=== PATIENT | female | born 1935 | race Caucasian/White ===

== ENCOUNTER 2016-09-21 19:49 | Inpatient (IN) | payer MEDICARE ==
[~2016-09-21] VITALS: Ht 149.9 cm; Wt 79.3 kg
[2016-09-21] MEDS ORDERED: PARO10TA89 PO (20:01)
[2016-09-21] MEDS ORDERED: ADV500 IH (20:01)
[2016-09-21] MEDS ORDERED: TORS20 PO (20:01)
[2016-09-21] MEDS ORDERED: METO-323 PO (20:01)
[2016-09-21] MEDS ORDERED: IPRATROPIUM BROMIDE 0.5 MG/2.5 ML NEB SOLUTION NEB ONE (20:30)
[2016-09-21] MEDS ORDERED: ALBUTEROL SULFATE 5 MG/ML 20 ML NEB SOLN [BULK] NEB ONE (20:30)
[2016-09-21] MEDS ORDERED: DEXAMETHASONE SOD PHOS 4 MG/ML 5 ML VIAL IVP ONE (20:30)
[2016-09-21 20:52] LABS: BASOPHILS % (AUTO) 0.4 % (0.0-2.0); EOSINOPHILS % (AUTO) 0.9 % (1.0-6.0); HEMATOCRIT 39.5 % (36-46); LYMPHOCYTES # (AUTO) 2.9 K/uL (1.0-4.8); LYMPHOCYTES % (AUTO) 27.5 % (22.0-44.0); MEAN CORPUSCULAR HEMOGLOBIN 31.7 pg (26.0-34.0); MEAN CORPUSCULAR VOLUME 96 fL (80-100); MONOCYTES # (AUTO) 1.3 K/uL (0.1-1.0); NEUTROPHILS # (AUTO) 6.3 K/uL (1.8-7.7); NEUTROPHILS % (AUTO) 59.2 % (40.0-70.0); PLATELET COUNT (AUTO) 331 K/uL (150-450); RED BLOOD CELL COUNT(AUTO) 4.12 MIL/uL (4.00-5.20); RED CELL DISTRIBUTION WIDTH 13.8 % (11.5-14.5); WHITE BLOOD COUNT (AUTO) 10.6 K/uL (4.5-11.0)
[2016-09-21] MEDS ORDERED: 0.9% SODIUM CHLORIDE 5 ML NEB SOLUTION NEB ONE (20:53)
[2016-09-21 21:00] LABS: ANION GAP 6 mmol/L (8-16); CALCIUM, TOTAL 8.8 mg/dL (8.8-10.5); CARBON DIOXIDE 34 mmol/L (22-29); CHLORIDE 97 mmol/L (98-107); CREATININE 0.83 mg/dL (0.60-1.30); GLOMERULAR FILTR. RATE CALC > 60 mL/min (>60); POTASSIUM 3.3 mmol/L (3.5-5.1); SODIUM SERUM 137 mmol/L (136-145); UREA NITROGEN, BLOOD 14 mg/dL (7-18)
[2016-09-21 21:05] LABS: ALANINE AMINOTRANSFERASE 21 U/L (12-78); ALBUMIN 3.1 g/dL (3.4-5.0); ASPARTATE AMINOTRANSFERASE 11 U/L (15-37); BILIRUBIN,TOTAL 0.3 mg/dL (0.1-1.0); TOTAL PROTEIN, SERUM 6.8 g/dL (6.4-8.2)
[2016-09-21 21:23] LABS: B-TYPE NATRIURETIC PEPTIDE 128 pg/mL (0-100)
[2016-09-21] MEDS ORDERED: AZITHROMYCIN 500 MG/NS 250 ML IV ONE (22:00)
[2016-09-21] MEDS ORDERED: CefTRIAXone 1 GM/DEXTROSE 50 ML IV ONE (22:00)
[2016-09-21] MEDS ORDERED: POTASSIUM CHLORIDE 20 MEQ ER TABLET PO PRN (22:15)
[2016-09-21] MEDS ORDERED: MAGNESIUM HYDROXIDE SUSPENSION 30 ML UDCUP PO PRN (22:15)
[2016-09-21] MEDS ORDERED: POTASSIUM CHL 10 MEQ/WATER 50 ML IV PRN (22:15)
[2016-09-21 22:49] LABS: INFLUENZA TYPE B NEGATIVE FOR TYPE B (NEGATIVE)
[2016-09-21 23:15] VITALS: BP 160/76
[2016-09-22] MEDS: HEPARIN SODIUM,PORCINE 5,000 UNITS/ML VIAL SQ SCH ×3 (00:33→17:05)
[2016-09-22] MEDS: MethylPREDNISolone SOD SUCC 125 MG/2 ML VIAL IVP SCH ×5 (00:33→17:18)
[2016-09-22] MEDS ORDERED: 0.9% SODIUM CHLORIDE 5 ML NEB SOLUTION NEB ONE (02:12)
[2016-09-22] MEDS: ALBUTEROL SULFATE 2.5 MG/0.5 ML NEB SOLUTION NEB PRN ×4 (02:16→19:17)
[2016-09-22] MEDS: IPRATROPIUM BROMIDE 0.5 MG/2.5 ML NEB SOLUTION NEB PRN ×4 (02:16→19:17)
[2016-09-22 04:51] VITALS: BP 133/63
[2016-09-22 07:44] VITALS: BP 142/60
[2016-09-22] MEDS: DOCUSATE SODIUM 100 MG CAPSULE PO SCH ×2 (09:25→20:07)
[2016-09-22] MEDS: ASPIRIN 81 MG CHEWABLE TABLET PO SCH (09:25)
[2016-09-22] MEDS: PANTOPRAZOLE SODIUM 40 MG DR TABLET PO SCH (09:25)
[2016-09-22 11:06] VITALS: BP 163/74
[2016-09-22] MEDS ORDERED: SODIUM CHLORIDE 0.9% 100 ML ONE (12:18)
[2016-09-22] MEDS ORDERED: METF500T4 PO (14:45)
[2016-09-22] MEDS ORDERED: NIFE60TA71 PO (14:45)
[2016-09-22] MEDS ORDERED: CLOP75 PO (14:45)
[2016-09-22] MEDS ORDERED: NAPR220T57 PO (14:45)
[2016-09-22] MEDS ORDERED: HYDR25 PO (14:45)
[2016-09-22] MEDS ORDERED: NYST1POW16 TP (14:45)
[2016-09-22] MEDS ORDERED: ATOR40TA28 PO (14:45)
[2016-09-22] MEDS ORDERED: NITR.4 SL (14:45)
[2016-09-22] MEDS ORDERED: TIOT185 IH (14:45)
[2016-09-22] MEDS ORDERED: KDUR10 PO (14:45)
[2016-09-22] MEDS ORDERED: FOLI1 PO (14:45)
[2016-09-22] MEDS ORDERED: METO100XL PO (14:45)
[2016-09-22] MEDS ORDERED: ASPI-1093 PO (14:45)
[2016-09-22] MEDS ORDERED: ISOS60TA4 PO (14:45)
[2016-09-22] MEDS ORDERED: TELM40 PO (14:45)
[2016-09-22] MEDS ORDERED: ALBU8.5H IH (14:45)
[2016-09-22] MEDS ORDERED: RANI150T7 PO (14:45)
[2016-09-22] MEDS ORDERED: AUD NEB ×2 (14:45)
[2016-09-22] MEDS ORDERED: MONT10TA21 PO (14:45)
[2016-09-22] MEDS ORDERED: FURO40 PO (14:45)
[2016-09-22] MEDS ORDERED: LORA0.5T83 PO (14:46)
[2016-09-22 15:51] VITALS: BP 151/92
[2016-09-22] MEDS ORDERED: ASPIRIN 81 MG EC TABLET PO PRN (16:45)
[2016-09-22] MEDS ORDERED: NITROGLYCERIN 0.4 MG SUBLINGUAL TABLET #25 SL PRN (16:45)
[2016-09-22] MEDS: FUROSEMIDE 40 MG TABLET PO SCH (17:05)
[2016-09-22] MEDS: CLOPIDOGREL BISULFATE 75 MG TABLET PO SCH (17:05)
[2016-09-22] MEDS: FOLIC ACID 1 MG TABLET PO SCH (17:05)
[2016-09-22] MEDS ORDERED: DEXTROSE 50%-WATER 25 GM/50 ML SYRINGE IVP PRN (18:15)
[2016-09-22] MEDS: TIOTROPIUM BROMIDE 18 MCG/INH HANDIHALER [5] IH SCH (18:21)
[2016-09-22] MEDS: FLUTICASONE/VILANTEROL 200-25 MCG/INH INHALER [14] IH SCH (18:21)
[2016-09-22] MEDS: TELMISARTAN 40 MG TABLET PO SCH (18:21)
[2016-09-22] MEDS: MetFORMIN HCL 500 MG TABLET PO SCH (18:22)
[2016-09-22] MEDS: LORazepam 2 MG/ML VIAL IVP PRN (18:23)
[2016-09-22] MEDS: INSULIN ASPART 100 UNITS/ML SQ PRN ×2 (18:37→20:50)
[2016-09-22 19:46] VITALS: BP 153/84
[2016-09-22] MEDS: ISOSORBIDE MONONITRATE 60 MG ER TABLET PO SCH (20:07)
[2016-09-22] MEDS: OxyCODONE HCL/ACETAMINOPHEN 5-325 MG TABLET PO PRN (20:07)
[2016-09-22] MEDS: OXYGEN THERAPY IH SCH (20:07)
[2016-09-22] MEDS: METOPROLOL SUCCINATE 100 MG ER TABLET PO SCH (20:08)
[2016-09-22] MEDS: CefTRIAXone 1 GM/DEXTROSE 50 ML IV SCH (20:08)
[2016-09-22] MEDS: NIFEdipine 60 MG ER TABLET PO SCH (20:08)
[2016-09-22] MEDS: ATORVASTATIN CALCIUM 40 MG TABLET PO SCH (20:08)
[2016-09-22] MEDS: HydrALAZINE HCL 25 MG TABLET PO SCH (20:08)
[2016-09-22] MEDS: MONTELUKAST SODIUM 10 MG TABLET PO SCH (20:11)
[2016-09-23 00:04] VITALS: BP 127/60
[2016-09-23] MEDS: OxyCODONE HCL/ACETAMINOPHEN 5-325 MG TABLET PO PRN (00:06)
[2016-09-23] MEDS: MethylPREDNISolone SOD SUCC 125 MG/2 ML VIAL IVP SCH ×5 (00:06→23:31)
[2016-09-23] MEDS: HEPARIN SODIUM,PORCINE 5,000 UNITS/ML VIAL SQ SCH ×4 (00:06→23:29)
[2016-09-23] MEDS: AZITHROMYCIN 500 MG/NS 250 ML IV SCH (00:07)
[2016-09-23] MEDS: LORazepam 2 MG/ML VIAL IVP PRN (02:34)
[2016-09-23 04:54] VITALS: BP 109/52
[2016-09-23] MEDS: INSULIN ASPART 100 UNITS/ML SQ PRN ×4 (06:15→21:12)
[2016-09-23 06:57] LABS: GLUCOSE,POINT OF CARE 268 MG/DL (70-110)
[2016-09-23 06:57] LABS: GLUCOSE COMMENT 1 Doctor Notified; GLUCOSE,POINT OF CARE 402 MG/DL (70-110)
[2016-09-23 07:10] VITALS: BP 126/59
[2016-09-23] MEDS: MetFORMIN HCL 500 MG TABLET PO SCH ×2 (08:14→18:13)
[2016-09-23] MEDS: FUROSEMIDE 40 MG TABLET PO SCH (08:14)
[2016-09-23] MEDS: FOLIC ACID 1 MG TABLET PO SCH (08:14)
[2016-09-23] MEDS: HydrALAZINE HCL 25 MG TABLET PO SCH ×4 (08:14→21:00)
[2016-09-23] MEDS: CLOPIDOGREL BISULFATE 75 MG TABLET PO SCH (08:14)
[2016-09-23] MEDS: PANTOPRAZOLE SODIUM 40 MG DR TABLET PO SCH (08:14)
[2016-09-23] MEDS: NIFEdipine 60 MG ER TABLET PO SCH ×2 (08:14→21:00)
[2016-09-23] MEDS: TELMISARTAN 40 MG TABLET PO SCH (08:14)
[2016-09-23] MEDS: POTASSIUM CHLORIDE 10 MEQ ER TABLET PO SCH (08:14)
[2016-09-23] MEDS: ASPIRIN 81 MG CHEWABLE TABLET PO SCH (08:15)
[2016-09-23] MEDS: DOCUSATE SODIUM 100 MG CAPSULE PO SCH ×2 (08:15→21:03)
[2016-09-23] MEDS: FLUTICASONE/VILANTEROL 200-25 MCG/INH INHALER [14] IH SCH (08:16)
[2016-09-23] MEDS: TIOTROPIUM BROMIDE 18 MCG/INH HANDIHALER [5] IH SCH (08:16)
[2016-09-23] MEDS: IPRATROPIUM BROMIDE 0.5 MG/2.5 ML NEB SOLUTION NEB PRN ×3 (08:17→15:53)
[2016-09-23] MEDS: ALBUTEROL SULFATE 2.5 MG/0.5 ML NEB SOLUTION NEB PRN ×3 (08:17→15:53)
[2016-09-23] MEDS: OXYGEN THERAPY IH SCH ×2 (09:21→21:00)
[2016-09-23 11:08] VITALS: BP 113/58
[2016-09-23] MEDS: ISOSORBIDE MONONITRATE 60 MG ER TABLET PO SCH ×2 (12:27→21:02)
[2016-09-23 15:00] VITALS: BP 118/48
[2016-09-23 16:02] LABS: ABG A-A DIFF O2 95.4 mmHg (10-20.0); ABG HCO3 29.9 mmol/L (22.0-26.0); ABG OXYHEMOGLOBIN 94.7 % (94.0-100.0); ABG PCO2 49 mmHg (35-45); ABG PH 7.427 (7.35-7.450)
[2016-09-23 16:03] LABS: ALLEN TEST, BLOOD GAS Positive
[2016-09-23 17:36] LABS: GLUCOSE COMMENT 1 Received Meds; GLUCOSE,POINT OF CARE 229 MG/DL (70-110)
[2016-09-23 19:23] VITALS: BP 106/52
[2016-09-23] MEDS: ATORVASTATIN CALCIUM 40 MG TABLET PO SCH (21:01)
[2016-09-23] MEDS: METOPROLOL SUCCINATE 100 MG ER TABLET PO SCH (21:01)
[2016-09-23] MEDS: MONTELUKAST SODIUM 10 MG TABLET PO SCH (21:01)
[2016-09-23] MEDS: ACETAMINOPHEN 325 MG TABLET PO PRN (21:14)
[2016-09-23] MEDS: CefTRIAXone 1 GM/DEXTROSE 50 ML IV SCH (23:29)
[2016-09-24] VITALS (8 sets, daily range): BP systolic 108–132; BP diastolic 50–70
[2016-09-24] MEDS: AZITHROMYCIN 500 MG/NS 250 ML IV SCH ×2 (00:23→23:15)
[2016-09-24] MEDS: ACETAMINOPHEN 325 MG TABLET PO PRN (02:57)
[2016-09-24] MEDS: MethylPREDNISolone SOD SUCC 125 MG/2 ML VIAL IVP SCH (05:21)
[2016-09-24] MEDS: INSULIN ASPART 100 UNITS/ML SQ PRN ×4 (05:23→20:10)
[2016-09-24 07:57] LABS: BASOPHILS # (AUTO) 0.01 K/uL (0.00-0.20); EOSINOPHILS % (AUTO) 0 % (1.0-6.0); HEMATOCRIT 32.6 % (36-46); HEMOGLOBIN 10.9 g/dL (12.0-16.0); LYMPHOCYTES # (AUTO) 0.7 K/uL (1.0-4.8); LYMPHOCYTES % (AUTO) 3.2 % (22.0-44.0); MEAN CORPUSCULAR HEMOGLOBIN 31.9 pg (26.0-34.0); MEAN CORPUSCULAR HGB CONC 33.4 G/dL (31.0-37.0); MEAN CORPUSCULAR VOLUME 95 fL (80-100); MONOCYTES # (AUTO) 0.4 K/uL (0.1-1.0); MONOCYTES % (AUTO) 2.1 % (2.0-9.0); NEUTROPHILS # (AUTO) 19.7 K/uL (1.8-7.7); PLATELET COUNT (AUTO) 312 K/uL (150-450); RED BLOOD CELL COUNT(AUTO) 3.42 MIL/uL (4.00-5.20); RED CELL DISTRIBUTION WIDTH 14.1 % (11.5-14.5); WHITE BLOOD COUNT (AUTO) 20.8 K/uL (4.5-11.0)
[2016-09-24 08:04] LABS: NEUTROPHILS % (AUTO) 94.7 % (40.0-70.0)
[2016-09-24] MEDS: TIOTROPIUM BROMIDE 18 MCG/INH HANDIHALER [5] IH SCH (08:14)
[2016-09-24] MEDS: FLUTICASONE/VILANTEROL 200-25 MCG/INH INHALER [14] IH SCH (08:14)
[2016-09-24] MEDS: MetFORMIN HCL 500 MG TABLET PO SCH ×2 (08:15→17:55)
[2016-09-24] MEDS: PANTOPRAZOLE SODIUM 40 MG DR TABLET PO SCH (08:15)
[2016-09-24] MEDS: FUROSEMIDE 40 MG TABLET PO SCH (08:15)
[2016-09-24] MEDS: POTASSIUM CHLORIDE 10 MEQ ER TABLET PO SCH (08:15)
[2016-09-24] MEDS: DOCUSATE SODIUM 100 MG CAPSULE PO SCH ×2 (08:15→20:11)
[2016-09-24] MEDS: CLOPIDOGREL BISULFATE 75 MG TABLET PO SCH (08:15)
[2016-09-24] MEDS: FOLIC ACID 1 MG TABLET PO SCH (08:15)
[2016-09-24] MEDS: ASPIRIN 81 MG CHEWABLE TABLET PO SCH (08:15)
[2016-09-24] MEDS: HEPARIN SODIUM,PORCINE 5,000 UNITS/ML VIAL SQ SCH ×3 (08:19→23:11)
[2016-09-24 08:20] LABS: ANION GAP 2 mmol/L (8-16); CALCIUM, TOTAL 9.2 mg/dL (8.8-10.5); CARBON DIOXIDE 37 mmol/L (22-29); CHLORIDE 98 mmol/L (98-107); CREATININE 0.93 mg/dL (0.60-1.30); GLOMERULAR FILTR. RATE CALC 58 mL/min (>60); POTASSIUM 4.8 mmol/L (3.5-5.1); SODIUM SERUM 137 mmol/L (136-145); UREA NITROGEN, BLOOD 32 mg/dL (7-18)
[2016-09-24] MEDS: OXYGEN THERAPY IH SCH ×2 (08:20→20:11)
[2016-09-24 09:18] LABS: PROCALCITONIN (PCT) < 0.05 ng/mL (<0.50)
[2016-09-24] MEDS: MethylPREDNISolone SOD SUCC 40 MG/ML VIAL IVP SCH ×3 (11:15→23:11)
[2016-09-24] MEDS: ISOSORBIDE MONONITRATE 60 MG ER TABLET PO SCH ×2 (11:39→20:11)
[2016-09-24] MEDS: HydrALAZINE HCL 25 MG TABLET PO SCH ×4 (11:40→20:11)
[2016-09-24] MEDS: NIFEdipine 60 MG ER TABLET PO SCH ×2 (11:42→20:11)
[2016-09-24] MEDS: TELMISARTAN 40 MG TABLET PO SCH (13:17)
[2016-09-24] MEDS: IPRATROPIUM BROMIDE 0.5 MG/2.5 ML NEB SOLUTION NEB PRN ×2 (13:39→23:25)
[2016-09-24] MEDS: ALBUTEROL SULFATE 2.5 MG/0.5 ML NEB SOLUTION NEB PRN ×2 (13:39→23:25)
[2016-09-24 20:06] LABS: GLUCOSE COMMENT 1 Received Meds; GLUCOSE,POINT OF CARE 263 MG/DL (70-110)
[2016-09-24 20:06] LABS: GLUCOSE COMMENT 1 Received Meds; GLUCOSE,POINT OF CARE 370 MG/DL (70-110)
[2016-09-24 20:06] LABS: GLUCOSE,POINT OF CARE 232 MG/DL (70-110)
[2016-09-24 20:07] LABS: GLUCOSE,POINT OF CARE 249 MG/DL (70-110)
[2016-09-24 20:07] LABS: GLUCOSE,POINT OF CARE 184 MG/DL (70-110)
[2016-09-24 20:07] LABS: GLUCOSE COMMENT 1 Received Meds; GLUCOSE,POINT OF CARE 286 MG/DL (70-110)
[2016-09-24 20:07] LABS: GLUCOSE,POINT OF CARE 254 MG/DL (70-110)
[2016-09-24] MEDS: ATORVASTATIN CALCIUM 40 MG TABLET PO SCH (20:11)
[2016-09-24] MEDS: MONTELUKAST SODIUM 10 MG TABLET PO SCH (20:11)
[2016-09-24] MEDS: METOPROLOL SUCCINATE 100 MG ER TABLET PO SCH (20:11)
[2016-09-24] MEDS ORDERED: SODIUM CHLORIDE 0.9% 250 ML IV ONE (23:05)
[2016-09-24] MEDS: CefTRIAXone 1 GM/DEXTROSE 50 ML IV SCH (23:12)
[2016-09-25] MEDS: OxyCODONE HCL/ACETAMINOPHEN 5-325 MG TABLET PO PRN (01:47)
[2016-09-25] MEDS: ALBUTEROL SULFATE 2.5 MG/0.5 ML NEB SOLUTION NEB PRN ×2 (02:54→12:13)
[2016-09-25] MEDS: IPRATROPIUM BROMIDE 0.5 MG/2.5 ML NEB SOLUTION NEB PRN ×2 (02:54→12:14)
[2016-09-25 05:03] VITALS: BP 123/50
[2016-09-25] MEDS: MethylPREDNISolone SOD SUCC 40 MG/ML VIAL IVP SCH ×2 (06:31→10:56)
[2016-09-25] MEDS: INSULIN ASPART 100 UNITS/ML SQ PRN ×4 (06:43→20:33)
[2016-09-25 07:23] VITALS: BP 136/72
[2016-09-25] MEDS: ASPIRIN 81 MG CHEWABLE TABLET PO SCH (08:07)
[2016-09-25] MEDS: DOCUSATE SODIUM 100 MG CAPSULE PO SCH ×2 (08:07→20:25)
[2016-09-25] MEDS: PANTOPRAZOLE SODIUM 40 MG DR TABLET PO SCH (08:07)
[2016-09-25] MEDS: FOLIC ACID 1 MG TABLET PO SCH (08:07)
[2016-09-25] MEDS: HEPARIN SODIUM,PORCINE 5,000 UNITS/ML VIAL SQ SCH ×3 (08:07→23:53)
[2016-09-25] MEDS: MetFORMIN HCL 500 MG TABLET PO SCH ×2 (08:07→17:59)
[2016-09-25] MEDS: CLOPIDOGREL BISULFATE 75 MG TABLET PO SCH (08:08)
[2016-09-25] MEDS: HydrALAZINE HCL 25 MG TABLET PO SCH ×4 (08:09→20:25)
[2016-09-25] MEDS: NIFEdipine 60 MG ER TABLET PO SCH ×2 (08:09→20:25)
[2016-09-25] MEDS: FLUTICASONE/VILANTEROL 200-25 MCG/INH INHALER [14] IH SCH (08:11)
[2016-09-25] MEDS: OXYGEN THERAPY IH SCH ×2 (08:12→20:24)
[2016-09-25] MEDS: TIOTROPIUM BROMIDE 18 MCG/INH HANDIHALER [5] IH SCH (08:12)
[2016-09-25 08:20] VITALS: BP 132/60
[2016-09-25] MEDS: ISOSORBIDE MONONITRATE 60 MG ER TABLET PO SCH ×2 (09:21→20:25)
[2016-09-25] MEDS: FUROSEMIDE 40 MG TABLET PO SCH (09:21)
[2016-09-25] MEDS: POTASSIUM CHLORIDE 10 MEQ ER TABLET PO SCH (09:22)
[2016-09-25 11:44] VITALS: BP 135/56
[2016-09-25] MEDS: TELMISARTAN 40 MG TABLET PO SCH (11:50)
[2016-09-25 15:35] VITALS: BP 128/64
[2016-09-25] MEDS ORDERED: NYST60PO TP (16:29)
[2016-09-25] MEDS ORDERED: LORA1TAB3 PO (16:29)
[2016-09-25] MEDS: PredniSONE 20 MG TABLET PO SCH (17:59)
[2016-09-25 19:19] VITALS: BP 146/65
[2016-09-25 19:56] LABS: GLUCOSE COMMENT 1 Received Meds; GLUCOSE,POINT OF CARE 333 MG/DL (70-110)
[2016-09-25 19:56] LABS: GLUCOSE COMMENT 1 Received Meds; GLUCOSE,POINT OF CARE 317 MG/DL (70-110)
[2016-09-25 19:56] LABS: GLUCOSE COMMENT 1 Received Meds; GLUCOSE,POINT OF CARE 177 MG/DL (70-110)
[2016-09-25] MEDS: METOPROLOL SUCCINATE 100 MG ER TABLET PO SCH (20:25)
[2016-09-25] MEDS: MONTELUKAST SODIUM 10 MG TABLET PO SCH (20:25)
[2016-09-25] MEDS: ATORVASTATIN CALCIUM 40 MG TABLET PO SCH (20:25)
[2016-09-25] MEDS: CefTRIAXone 1 GM/DEXTROSE 50 ML IV SCH (23:53)
[2016-09-25] MEDS: AZITHROMYCIN 500 MG/NS 250 ML IV SCH (23:53)
[2016-09-26 00:18] VITALS: BP 148/79
[2016-09-26 04:35] VITALS: BP 123/70
[2016-09-26] MEDS: INSULIN ASPART 100 UNITS/ML SQ PRN ×4 (06:51→20:18)
[2016-09-26 07:05] LABS: GLUCOSE COMMENT 1 Received Meds; GLUCOSE,POINT OF CARE 266 MG/DL (70-110)
[2016-09-26 07:06] LABS: GLUCOSE,POINT OF CARE 189 MG/DL (70-110)
[2016-09-26 07:11] LABS: GLUCOSE,POINT OF CARE 254 MG/DL (70-110)
[2016-09-26 07:48] VITALS: BP 141/64
[2016-09-26] MEDS: FLUTICASONE/VILANTEROL 200-25 MCG/INH INHALER [14] IH SCH (08:35)
[2016-09-26] MEDS: TIOTROPIUM BROMIDE 18 MCG/INH HANDIHALER [5] IH SCH (08:35)
[2016-09-26] MEDS: PredniSONE 20 MG TABLET PO SCH (08:36)
[2016-09-26] MEDS: CLOPIDOGREL BISULFATE 75 MG TABLET PO SCH (08:36)
[2016-09-26] MEDS: FOLIC ACID 1 MG TABLET PO SCH (08:36)
[2016-09-26] MEDS: TELMISARTAN 40 MG TABLET PO SCH (08:36)
[2016-09-26] MEDS: NIFEdipine 60 MG ER TABLET PO SCH ×2 (08:36→20:13)
[2016-09-26] MEDS: ISOSORBIDE MONONITRATE 60 MG ER TABLET PO SCH ×2 (08:36→20:13)
[2016-09-26] MEDS: POTASSIUM CHLORIDE 10 MEQ ER TABLET PO SCH (08:36)
[2016-09-26] MEDS: FUROSEMIDE 40 MG TABLET PO SCH (08:37)
[2016-09-26] MEDS: ASPIRIN 81 MG CHEWABLE TABLET PO SCH (08:37)
[2016-09-26] MEDS: MetFORMIN HCL 500 MG TABLET PO SCH ×2 (08:37→18:22)
[2016-09-26] MEDS: DOCUSATE SODIUM 100 MG CAPSULE PO SCH ×2 (08:37→20:13)
[2016-09-26] MEDS: PANTOPRAZOLE SODIUM 40 MG DR TABLET PO SCH (08:37)
[2016-09-26] MEDS: HydrALAZINE HCL 25 MG TABLET PO SCH ×4 (08:37→20:13)
[2016-09-26] MEDS: OXYGEN THERAPY IH SCH ×2 (08:42→20:13)
[2016-09-26] MEDS: HEPARIN SODIUM,PORCINE 5,000 UNITS/ML VIAL SQ SCH ×3 (08:45→22:44)
[2016-09-26] MEDS ORDERED: LORazepam 0.5 MG TABLET PO PRN (09:00)
[2016-09-26 11:35] VITALS: BP 139/66
[2016-09-26] MEDS ORDERED: MethylPREDNISolone SOD SUCC 125 MG/2 ML VIAL IVP ONE (14:30)
[2016-09-26 15:14] VITALS: BP 130/66
[2016-09-26] MEDS ORDERED: PANT40TA25 PO (17:50)
[2016-09-26 19:31] VITALS: BP 149/74
[2016-09-26] MEDS: MONTELUKAST SODIUM 10 MG TABLET PO SCH (20:13)
[2016-09-26] MEDS: ATORVASTATIN CALCIUM 40 MG TABLET PO SCH (20:13)
[2016-09-26] MEDS: METOPROLOL SUCCINATE 100 MG ER TABLET PO SCH (20:13)
[2016-09-26] MEDS: CefTRIAXone 1 GM/DEXTROSE 50 ML IV SCH (22:41)
[2016-09-26] MEDS: AZITHROMYCIN 500 MG/NS 250 ML IV SCH (22:41)
[2016-09-27] VITALS: BP 118/89
[2016-09-27 00:47] LABS: GLUCOSE COMMENT 1 Received Meds; GLUCOSE,POINT OF CARE 332 MG/DL (70-110)
[2016-09-27 04:45] VITALS: BP 117/57
[2016-09-27] MEDS: INSULIN ASPART 100 UNITS/ML SQ PRN (06:43)
[2016-09-27 07:26] VITALS: BP 116/61
[2016-09-27] MEDS: HEPARIN SODIUM,PORCINE 5,000 UNITS/ML VIAL SQ SCH (08:24)
[2016-09-27] MEDS: ASPIRIN 81 MG CHEWABLE TABLET PO SCH (08:24)
[2016-09-27] MEDS: FLUTICASONE/VILANTEROL 200-25 MCG/INH INHALER [14] IH SCH (08:25)
[2016-09-27] MEDS: TIOTROPIUM BROMIDE 18 MCG/INH HANDIHALER [5] IH SCH (08:26)
[2016-09-27] MEDS: MetFORMIN HCL 500 MG TABLET PO SCH (08:28)
[2016-09-27] MEDS: HydrALAZINE HCL 25 MG TABLET PO SCH (08:28)
[2016-09-27] MEDS: PANTOPRAZOLE SODIUM 40 MG DR TABLET PO SCH (08:29)
[2016-09-27] MEDS: FUROSEMIDE 40 MG TABLET PO SCH (08:29)
[2016-09-27] MEDS: DOCUSATE SODIUM 100 MG CAPSULE PO SCH (08:29)
[2016-09-27] MEDS: ISOSORBIDE MONONITRATE 60 MG ER TABLET PO SCH (08:29)
[2016-09-27] MEDS: PredniSONE 20 MG TABLET PO SCH (08:29)
[2016-09-27] MEDS: CLOPIDOGREL BISULFATE 75 MG TABLET PO SCH (08:29)
[2016-09-27] MEDS: NIFEdipine 60 MG ER TABLET PO SCH (08:30)
[2016-09-27] MEDS: FOLIC ACID 1 MG TABLET PO SCH (08:30)
[2016-09-27] MEDS: POTASSIUM CHLORIDE 10 MEQ ER TABLET PO SCH (08:30)
[2016-09-27] MEDS: TELMISARTAN 40 MG TABLET PO SCH (08:31)
[2016-09-27] MEDS: OXYGEN THERAPY IH SCH (08:31)
[2016-09-27] MEDS ORDERED: PRED10 PO (10:19)
[2016-09-27 19:46] LABS: GLUCOSE COMMENT 1 Received Meds; GLUCOSE,POINT OF CARE 138 MG/DL (70-110)
[2016-10-08 12:27] LABS: GLUCOSE COMMENT 1 Received Meds; GLUCOSE,POINT OF CARE 259 MG/DL (70-110)
[2016-10-08 12:27] LABS: GLUCOSE COMMENT 1 Received Meds; GLUCOSE,POINT OF CARE 123 MG/DL (70-110)
== END 2016-09-27 11:25 | disposition home health service (06) | DRG 189 ==
LOC: EMS 19:51 → 5N 22:22
PROVIDERS: ADMIT Internal Medicine; ATTEND Internal Medicine
DX: J96.20 Acute and chronic respiratory failure, unspecified whether with hypoxia or hypercapnia (principal); J44.1 Chronic obstructive pulmonary disease with (acute) exacerbation; E44.0 Moderate protein-calorie malnutrition; E66.01 Morbid (severe) obesity due to excess calories; E87.6 Hypokalemia; I50.9 Heart failure, unspecified; R91.1 Solitary pulmonary nodule; I11.0 Hypertensive heart disease with heart failure; E11.9 Type 2 diabetes mellitus without complications; F41.9 Anxiety disorder, unspecified; I25.10 Atherosclerotic heart disease of native coronary artery without angina pectoris; Z68.35 Body mass index [BMI] 35.0-35.9, adult; Z79.899 Other long term (current) drug therapy; Z79.51 Long term (current) use of inhaled steroids
CPT/HCPCS: 71250; 82805; 82962; 84132; 84145; 87081; 87804; 93005; 94640; 94644; 96365; 96375; 99285; J0456; J0696; J1100; J1644; J2060; J2920; J2930; J7050

== ENCOUNTER 2016-12-06 09:16 | Emergency (ER) | payer MEDICARE ==
[~2016-12-06] VITALS: Ht 152.4 cm; Wt 59.1 kg
[~2016-12-06 09:16] MED LIST: ADV500 IH; ALBU8.5H IH; ASPI-1093 PO; ATOR40TA28 PO; AUD NEB; CLOP75 PO; FOLI1 PO; FURO40 PO; HYDR25 PO; ISOS60TA4 PO; KDUR10 PO; METF500T4 PO; METO100XL PO; MONT10TA21 PO; NAPR220T57 PO; NIFE60 PO; NITR.4 SL; PANT40TA25 PO; PRED10 PO; TELM40 PO; TIOT185 IH
[2016-12-06 10:49] LABS: BASOPHILS # (AUTO) 0.02 K/uL (0.00-0.20); BASOPHILS % (AUTO) 0.3 % (0.0-2.0); EOSINOPHILS # (AUTO) 0.06 K/uL (0.00-0.70); EOSINOPHILS % (AUTO) 0.66 % (1.0-6.0); HEMATOCRIT 36.5 % (36-46); HEMOGLOBIN 12.4 g/dL (12.0-16.0); LYMPHOCYTES # (AUTO) 1.6 K/uL (1.0-4.8); LYMPHOCYTES % (AUTO) 19.1 % (22.0-44.0); MEAN CORPUSCULAR HEMOGLOBIN 31.3 pg (26.0-34.0); MEAN CORPUSCULAR HGB CONC 33.8 G/dL (31.0-37.0); MEAN CORPUSCULAR VOLUME 93 fL (80-100); MONOCYTES # (AUTO) 0.5 K/uL (0.1-1.0); MONOCYTES % (AUTO) 5.5 % (2.0-9.0); NEUTROPHILS # (AUTO) 6.4 K/uL (1.8-7.7); NEUTROPHILS % (AUTO) 74.5 % (40.0-70.0); PLATELET COUNT (AUTO) 319 K/uL (150-450); RED BLOOD CELL COUNT(AUTO) 3.94 MIL/uL (4.00-5.20); RED CELL DISTRIBUTION WIDTH 13.3 % (11.5-14.5); WHITE BLOOD COUNT (AUTO) 8.6 K/uL (4.5-11.0)
[2016-12-06 10:57] LABS: ANION GAP 6 mmol/L (8-16); CARBON DIOXIDE 35 mmol/L (22-29); CHLORIDE 103 mmol/L (98-107); CREATININE 0.58 mg/dL (0.60-1.30); GLOMERULAR FILTR. RATE CALC > 60 mL/min (>60); POTASSIUM 3.4 mmol/L (3.5-5.1); SODIUM SERUM 144 mmol/L (136-145); UREA NITROGEN, BLOOD 13 mg/dL (7-18)
[2016-12-06 11:03] LABS: ALANINE AMINOTRANSFERASE 16 U/L (12-78); ALBUMIN 3.1 g/dL (3.4-5.0); ASPARTATE AMINOTRANSFERASE 16 U/L (15-37); BILIRUBIN,TOTAL 0.6 mg/dL (0.1-1.0); TOTAL PROTEIN, SERUM 6.9 g/dL (6.4-8.2)
[2016-12-06] MEDS ORDERED: CloNIDine HCL 0.2 MG TABLET PO ONE (11:15)
[2016-12-06 11:39] LABS: CREATINE KINASE, TOTAL 43 U/L (26-192)
[2016-12-06 12:05] LABS: APPEARANCE,URINE CLEAR (CLEAR); GLUCOSE, URINE (UA) NEGATIVE (NEGATIVE); KETONES,URINE TRACE mg/dL (NEGATIVE); LEUKOCYTE ESTERASE ,URINE TRACE (NEGATIVE); OCCULT BLOOD,URINE NEGATIVE (NEGATIVE); PH,URINE 6.5 (5.0-8.0); PROTEIN,URINE SEE CONFIRM (NEGATIVE)
[2016-12-06 12:07] LABS: ADD UA MICROSCOPIC YES; SULFOSALICYLIC ACID,URINE 1+ (Negative)
[2016-12-06 12:13] LABS: RBC,URINE None Seen /HPF (0-2)
[2016-12-06 12:14] LABS: SQUAMOUS EPITHELIAL CELL,UR Few /LPF (None Seen); WBC,URINE 0-2 /HPF (0-5)
[2016-12-06 13:06] VITALS: BP 123/88
== END 2016-12-06 13:41 | disposition home or self-care (01) ==
LOC: EMS 09:18
DX: I10 Essential (primary) hypertension (principal); I50.9 Heart failure, unspecified; E11.9 Type 2 diabetes mellitus without complications; Z79.82 Long term (current) use of aspirin
CPT/HCPCS: 70450; 93005; 99285

== ENCOUNTER 2018-01-25 21:00 | Inpatient (IN) | payer MEDICARE, OTHER ==
[~2018-01-25] VITALS: Ht 152.4 cm; Wt 71.0 kg
[~2018-01-25 21:00] MED LIST changes: -ALBU8.5H IH; +ALBU8.5H8 IH; -ASPI-1093 PO; +ASPI-1182 PO; -HYDR25 PO; +HYDR25TA84 PO; -METF500T4 PO; +METF500T6 PO; -NIFE60 PO; +NIFE60TA71 PO; -PRED10 PO
[2018-01-25] MEDS ORDERED: LORA0.5T2 PO (21:52)
[2018-01-25] MEDS ORDERED: HYDR-4069 PO (21:52)
[2018-01-25] MEDS ORDERED: LIDO1ADH5 TP (21:53)
[2018-01-25] MEDS ORDERED: CefTRIAXone SODIUM 1 GM in DEXTROSE 5%-WATER 10 ML IV ONE (22:15)
[2018-01-25] MEDS ORDERED: IPRATROPIUM BROMIDE 0.5 MG/2.5 ML NEB SOLUTION NEB ONE (22:15)
[2018-01-25] MEDS ORDERED: ALBUTEROL SULFATE 2.5 MG/0.5 ML NEB SOLUTION NEB ONE (22:15)
[2018-01-25] MEDS ORDERED: ACETAMINOPHEN 500 MG TABLET PO ONE (22:15)
[2018-01-25] MEDS ORDERED: MethylPREDNISolone SOD SUCC 125 MG/2 ML VIAL IVP ONE (22:15)
[2018-01-25 22:28] LABS: BASOPHILS % (AUTO) 0.4 % (0.0-2.0); EOSINOPHILS % (AUTO) 0.3 % (1.0-6.0); HEMATOCRIT 31.8 % (36-46); HEMOGLOBIN 10.9 g/dL (12.0-16.0); LYMPHOCYTES # (AUTO) 1.2 K/uL (1.0-4.8); LYMPHOCYTES % (AUTO) 11.5 % (22.0-44.0); MEAN CORPUSCULAR HEMOGLOBIN 33.4 pg (26.0-34.0); MEAN CORPUSCULAR HGB CONC 34.3 G/dL (31.0-37.0); MEAN CORPUSCULAR VOLUME 97 fL (80-100); MONOCYTES # (AUTO) 0.8 K/uL (0.1-1.0); MONOCYTES % (AUTO) 7.2 % (2.0-9.0); NEUTROPHILS # (AUTO) 8.6 K/uL (1.8-7.7); NEUTROPHILS % (AUTO) 80.6 % (40.0-70.0); PLATELET COUNT (AUTO) 307 K/uL (150-450); RED BLOOD CELL COUNT(AUTO) 3.26 MIL/uL (4.00-5.20); RED CELL DISTRIBUTION WIDTH 15.6 % (11.5-14.5)
[2018-01-25 22:46] LABS: CALCIUM, TOTAL 8.7 mg/dL (8.8-10.5); CREATININE 1.2 mg/dL (0.60-1.30); POTASSIUM 4.6 mmol/L (3.5-5.1)
[2018-01-25 22:52] LABS: ALBUMIN 3.1 g/dL (3.4-5.0); BILIRUBIN,TOTAL 0.6 mg/dL (0.1-1.0); TOTAL PROTEIN, SERUM 6.8 g/dL (6.4-8.2)
[2018-01-25 22:53] LABS: LACTIC ACID 1.9 mmol/L (0.4-2.0)
[2018-01-25] MEDS ORDERED: ASPIRIN 325 MG TABLET PO ONE (23:15)
[2018-01-25] MEDS: OXYGEN THERAPY IH SCH ×2 (23:37→23:58)
[2018-01-25] MEDS ORDERED: IPRATROPIUM BROMIDE 0.5 MG/2.5 ML NEB SOLUTION NEB PRN (23:45)
[2018-01-25] MEDS ORDERED: 0.9% SODIUM CHLORIDE 10 ML SYRINGE IVP PRN (23:45)
[2018-01-25] MEDS ORDERED: ONDANSETRON HCL 4 MG/2 ML VIAL IVP PRN (23:45)
[2018-01-25] MEDS ORDERED: ACETAMINOPHEN 325 MG TABLET PO PRN (23:45)
[2018-01-25] MEDS ORDERED: ALBUTEROL SULFATE 2.5 MG/0.5 ML NEB SOLUTION NEB PRN (23:45)
[2018-01-26] VITALS (7 sets, daily range): BP systolic 104–170; BP diastolic 58–109
[2018-01-26] MEDS: IPRATROPIUM BROMIDE 0.5 MG/2.5 ML NEB SOLUTION NEB SCH ×3 (01:59→11:34)
[2018-01-26] MEDS: ALBUTEROL SULFATE 2.5 MG/0.5 ML NEB SOLUTION NEB SCH ×3 (01:59→11:34)
[2018-01-26] MEDS: LORazepam 2 MG/ML VIAL IVP PRN (02:01)
[2018-01-26] MEDS: OXYGEN THERAPY IH SCH ×4 (06:25→19:28)
[2018-01-26] MEDS ORDERED: MAGNESIUM SULFATE 2 GM in DEXTROSE 5%-WATER 50 ML IV PRN (12:45)
[2018-01-26] MEDS ORDERED: DEXTROSE 50%-WATER 25 GM/50 ML SYRINGE IVP PRN (12:45)
[2018-01-26] MEDS ORDERED: NITROGLYCERIN 0.4 MG SUBLINGUAL TABLET #25 SL PRN (12:45)
[2018-01-26] MEDS ORDERED: TELMISARTAN 40 MG TABLET PO SCH (12:45)
[2018-01-26] MEDS ORDERED: MAGNESIUM SULFATE 4 GM/WATER 100 ML IV PRN (12:45)
[2018-01-26] MEDS ORDERED: MAGNESIUM OXIDE 400 MG TABLET PO PRN (12:45)
[2018-01-26] MEDS ORDERED: ISOSORBIDE MONONITRATE 30 MG ER TABLET PO SCH (12:45)
[2018-01-26] MEDS ORDERED: LEVALBUTEROL HCL 1.25 MG/0.5 ML NEB SOLUTION NEB PRN (12:45)
[2018-01-26] MEDS: NIFEdipine 60 MG ER TABLET PO SCH ×2 (12:45→20:45)
[2018-01-26] MEDS: ASPIRIN 81 MG EC TABLET PO SCH (12:58)
[2018-01-26] MEDS: FUROSEMIDE 40 MG TABLET PO SCH (12:59)
[2018-01-26] MEDS: FOLIC ACID 1 MG TABLET PO SCH (12:59)
[2018-01-26] MEDS: CLOPIDOGREL BISULFATE 75 MG TABLET PO SCH (12:59)
[2018-01-26] MEDS: HydrALAZINE HCL 25 MG TABLET PO SCH ×3 (13:00→20:45)
[2018-01-26] MEDS: ALPRAZolam 0.25 MG TABLET PO PRN (13:00)
[2018-01-26] MEDS: ACETAMINOPHEN 325 MG TABLET PO PRN (13:01)
[2018-01-26] MEDS ORDERED: 0.9% SODIUM CHLORIDE 5 ML NEB SOLUTION NEB ONE ×3 (15:06→23:11)
[2018-01-26] MEDS: LEVALBUTEROL HCL 1.25 MG/0.5 ML NEB SOLUTION NEB SCH ×3 (15:08→23:12)
[2018-01-26] MEDS: TIOTROPIUM BROMIDE 18 MCG/INH HANDIHALER [5] IH SCH (15:44)
[2018-01-26 16:52] LABS: ABG A-A DIFF O2 376.1 mmHg (10-20.0); ABG CARBOXYHEMOGLOBIN 1.2 % (0.0-1.5); ABG HCO3 29.2 mmol/L (22.0-26.0); ABG METHEMOGLOBIN 0.3 % (0.0-1.5); ABG OXYGEN CONTENT 12.8 mL/dL (15.0-23.0); ABG OXYGEN SATURATION 84.5 % (95.0-98.0); ABG OXYHEMOGLOBIN 83.2 % (94.0-100.0); ABG PCO2 65 mmHg (35-45); ABG PH 7.325 (7.35-7.450); ABG TOTAL HEMOGLOBIN 10.9 G/dL (12.0-18.0); PO2, ARTERIAL BG 53.3 mmHg (71.0-79.0); SITE, BLOOD GAS LFT RADIAL; SOURCE, BLOOD GAS ARTERIAL; TEMPERATURE, FAHRENHEIT, BG 98.6 FAHREN (96.0-98.6)
[2018-01-26 16:53] LABS: O2 DEVICE,BLOOD GAS HI FL CANNULA (ROOM AIR)
[2018-01-26] MEDS: MetFORMIN HCL 500 MG TABLET PO SCH (18:00)
[2018-01-26] MEDS: ATORVASTATIN CALCIUM 40 MG TABLET PO SCH (21:14)
[2018-01-26] MEDS: MONTELUKAST SODIUM 10 MG TABLET PO SCH (21:15)
[2018-01-27] VITALS: BP 99/56
[2018-01-27] MEDS ORDERED: 0.9% SODIUM CHLORIDE 5 ML NEB SOLUTION NEB ONE (03:08)
[2018-01-27] MEDS: LEVALBUTEROL HCL 1.25 MG/0.5 ML NEB SOLUTION NEB SCH ×2 (03:09→07:12)
[2018-01-27 03:10] LABS: GLUCOSE,POINT OF CARE 95 MG/DL (70-110)
[2018-01-27 04:00] VITALS: BP 127/66
[2018-01-27 05:02] LABS: BASOPHILS % (AUTO) 0.5 % (0.0-2.0); EOSINOPHILS % (AUTO) 0.7 % (1.0-6.0); HEMATOCRIT 29.4 % (36-46); HEMOGLOBIN 10.3 g/dL (12.0-16.0); LYMPHOCYTES # (AUTO) 1.3 K/uL (1.0-4.8); LYMPHOCYTES % (AUTO) 14.6 % (22.0-44.0); MEAN CORPUSCULAR VOLUME 97 fL (80-100); MONOCYTES # (AUTO) 0.9 K/uL (0.1-1.0); MONOCYTES % (AUTO) 10.8 % (2.0-9.0); NEUTROPHILS # (AUTO) 6.4 K/uL (1.8-7.7); NEUTROPHILS % (AUTO) 73.4 % (40.0-70.0); PLATELET COUNT (AUTO) 262 K/uL (150-450); RED BLOOD CELL COUNT(AUTO) 3.03 MIL/uL (4.00-5.20); RED CELL DISTRIBUTION WIDTH 15.2 % (11.5-14.5)
[2018-01-27 05:09] LABS: ANION GAP 2 mmol/L (8-16); CALCIUM, TOTAL 8.6 mg/dL (8.8-10.5); CARBON DIOXIDE 36 mmol/L (22-29); CHLORIDE 98 mmol/L (98-107); CREATININE 0.83 mg/dL (0.60-1.30); GLUCOSE,RANDOM 102 mg/dL (70-110); POTASSIUM 3.9 mmol/L (3.5-5.1); SODIUM SERUM 136 mmol/L (136-145); UREA NITROGEN, BLOOD 20 mg/dL (7-18)
[2018-01-27 05:10] LABS: GLOMERULAR FILTR. RATE CALC > 60 mL/min (>60)
[2018-01-27 05:30] LABS: GLUCOMETER DEV NAME(LOC) 5S 2Q; GLUCOSE,POINT OF CARE 135 MG/DL (70-110)
[2018-01-27 05:30] LABS: GLUCOMETER DEV NAME(LOC) 5S 1M; GLUCOSE,POINT OF CARE 195 MG/DL (70-110)
[2018-01-27 05:31] LABS: GLUCOMETER DEV NAME(LOC) 5S 2Q; GLUCOSE,POINT OF CARE 151 MG/DL (70-110)
[2018-01-27 08:00] VITALS: BP 145/67
[2018-01-27] MEDS: MetFORMIN HCL 500 MG TABLET PO SCH ×3 (08:00→17:40)
[2018-01-27 08:09] LABS: GLUCOSE,POINT OF CARE 100 MG/DL (70-110)
[2018-01-27] MEDS: ISOSORBIDE MONONITRATE 60 MG ER TABLET PO SCH ×2 (08:23→20:22)
[2018-01-27] MEDS: TIOTROPIUM BROMIDE 18 MCG/INH HANDIHALER [5] IH SCH (08:31)
[2018-01-27] MEDS: CLOPIDOGREL BISULFATE 75 MG TABLET PO SCH (08:32)
[2018-01-27] MEDS: FOLIC ACID 1 MG TABLET PO SCH (08:32)
[2018-01-27] MEDS: HydrALAZINE HCL 25 MG TABLET PO SCH ×4 (08:32→20:23)
[2018-01-27] MEDS: ASPIRIN 81 MG EC TABLET PO SCH (08:40)
[2018-01-27] MEDS: NIFEdipine 60 MG ER TABLET PO SCH ×2 (08:42→20:24)
[2018-01-27] MEDS: FUROSEMIDE 40 MG TABLET PO SCH (08:46)
[2018-01-27] MEDS ORDERED: TELMISARTAN 20 MG TABLET PO SCH (09:00)
[2018-01-27] MEDS: IPRATROPIUM BROMIDE 0.5 MG/2.5 ML NEB SOLUTION NEB SCH ×4 (10:51→22:57)
[2018-01-27 12:00] VITALS: BP 95/48
[2018-01-27] MEDS: DOXYCYCLINE HYCLATE 100 MG CAPSULE PO SCH ×2 (12:22→20:25)
[2018-01-27] MEDS: CefTRIAXone SODIUM 1 GM in DEXTROSE 5%-WATER 10 ML IV SCH (12:24)
[2018-01-27] MEDS: MethylPREDNISolone SOD SUCC 125 MG/2 ML VIAL IVP SCH ×2 (12:24→17:40)
[2018-01-27] MEDS: INSULIN LISPRO 100 UNITS/ML SQ PRN ×3 (12:27→20:21)
[2018-01-27] MEDS: ACETAMINOPHEN 325 MG TABLET PO PRN (14:14)
[2018-01-27] MEDS: ALBUTEROL SULFATE 2.5 MG/0.5 ML NEB SOLUTION NEB SCH ×4 (15:00→22:57)
[2018-01-27 15:38] LABS: GLUCOSE,POINT OF CARE 159 MG/DL (70-110)
[2018-01-27 16:00] VITALS: BP 125/58
[2018-01-27 20:00] VITALS: BP 120/62
[2018-01-27] MEDS: ATORVASTATIN CALCIUM 40 MG TABLET PO SCH (20:22)
[2018-01-27] MEDS: MONTELUKAST SODIUM 10 MG TABLET PO SCH (20:22)
[2018-01-27] MEDS: FUROSEMIDE 40 MG/4 ML VIAL IVP SCH (20:23)
[2018-01-27 22:48] LABS: GLUCOSE,POINT OF CARE 228 MG/DL (70-110)
[2018-01-28] VITALS: BP 154/98
[2018-01-28] MEDS: MethylPREDNISolone SOD SUCC 125 MG/2 ML VIAL IVP SCH ×4 (00:18→17:33)
[2018-01-28] MEDS: LORazepam 2 MG/ML VIAL IVP PRN ×2 (00:18→21:07)
[2018-01-28 03:18] LABS: GLUCOSE,POINT OF CARE 195 MG/DL (70-110)
[2018-01-28] MEDS: IPRATROPIUM BROMIDE 0.5 MG/2.5 ML NEB SOLUTION NEB SCH ×6 (03:30→22:50)
[2018-01-28] MEDS: ALBUTEROL SULFATE 2.5 MG/0.5 ML NEB SOLUTION NEB SCH ×6 (03:30→22:50)
[2018-01-28 04:00] VITALS: BP 104/59
[2018-01-28] MEDS: INSULIN LISPRO 100 UNITS/ML SQ PRN ×4 (05:57→23:35)
[2018-01-28 07:23] LABS: GLUCOSE,POINT OF CARE 197 MG/DL (70-110)
[2018-01-28 08:00] VITALS: BP 119/58
[2018-01-28] MEDS: CLOPIDOGREL BISULFATE 75 MG TABLET PO SCH (08:55)
[2018-01-28] MEDS: FUROSEMIDE 40 MG/4 ML VIAL IVP SCH ×2 (08:55→21:59)
[2018-01-28] MEDS: ASPIRIN 81 MG EC TABLET PO SCH (08:56)
[2018-01-28] MEDS: FOLIC ACID 1 MG TABLET PO SCH (08:56)
[2018-01-28] MEDS: HydrALAZINE HCL 25 MG TABLET PO SCH ×4 (08:56→21:59)
[2018-01-28] MEDS: ISOSORBIDE MONONITRATE 60 MG ER TABLET PO SCH ×2 (08:56→21:58)
[2018-01-28] MEDS: MetFORMIN HCL 500 MG TABLET PO SCH ×2 (08:56→17:33)
[2018-01-28] MEDS: DOXYCYCLINE HYCLATE 100 MG CAPSULE PO SCH ×2 (08:57→21:59)
[2018-01-28] MEDS: NIFEdipine 60 MG ER TABLET PO SCH ×2 (08:57→21:58)
[2018-01-28] MEDS: TELMISARTAN 40 MG TABLET PO SCH (08:58)
[2018-01-28 09:19] LABS: BASOPHILS % (AUTO) 0.4 % (0.0-2.0); EOSINOPHILS % (AUTO) 0 % (1.0-6.0); HEMATOCRIT 28.2 % (36-46); HEMOGLOBIN 9.8 g/dL (12.0-16.0); LYMPHOCYTES # (AUTO) 0.7 K/uL (1.0-4.8); LYMPHOCYTES % (AUTO) 5.9 % (22.0-44.0); MEAN CORPUSCULAR HEMOGLOBIN 33.3 pg (26.0-34.0); MEAN CORPUSCULAR HGB CONC 34.6 G/dL (31.0-37.0); MEAN CORPUSCULAR VOLUME 96 fL (80-100); MONOCYTES # (AUTO) 0.2 K/uL (0.1-1.0); NEUTROPHILS # (AUTO) 10.9 K/uL (1.8-7.7); PLATELET COUNT (AUTO) 285 K/uL (150-450); RED BLOOD CELL COUNT(AUTO) 2.93 MIL/uL (4.00-5.20); RED CELL DISTRIBUTION WIDTH 15.1 % (11.5-14.5)
[2018-01-28] MEDS: TIOTROPIUM BROMIDE 18 MCG/INH HANDIHALER [5] IH SCH (09:29)
[2018-01-28 09:31] LABS: NEUTROPHILS % (AUTO) 91.7 % (40.0-70.0)
[2018-01-28 09:34] LABS: ALBUMIN 2.8 g/dL (3.4-5.0); BILIRUBIN,TOTAL 0.5 mg/dL (0.1-1.0); CALCIUM, TOTAL 8.6 mg/dL (8.8-10.5); CREATININE 1.01 mg/dL (0.60-1.30); MAGNESIUM 1.4 mg/dL (1.80-2.40); POTASSIUM 4.2 mmol/L (3.5-5.1); TOTAL PROTEIN, SERUM 6.6 g/dL (6.4-8.2)
[2018-01-28] MEDS: ACETAMINOPHEN 325 MG TABLET PO PRN ×2 (10:25→14:29)
[2018-01-28] MEDS: CefTRIAXone SODIUM 1 GM in DEXTROSE 5%-WATER 10 ML IV SCH (10:27)
[2018-01-28] MEDS ORDERED: MAGNESIUM SULFATE 2 GM/WATER 50 ML IV PRN (10:45)
[2018-01-28 11:31] LABS: PROTHROMBIN TIME 10.7 SEC (9.4-11.6)
[2018-01-28 11:41] LABS: APPEARANCE,URINE CLOUDY (CLEAR); GLUCOSE, URINE (UA) NEGATIVE (NEGATIVE); KETONES,URINE TRACE mg/dL (NEGATIVE); LEUKOCYTE ESTERASE ,URINE SMALL (NEGATIVE); NITRATE,URINE NEGATIVE (NEGATIVE); OCCULT BLOOD,URINE LARGE (NEGATIVE); PROTEIN,URINE NEGATIVE (NEGATIVE); UROBILINOGEN,URINE 0.2 mg/dL (<=1.0)
[2018-01-28 12:00] VITALS: BP 110/52
[2018-01-28 12:22] LABS: BILIRUBIN,URINE PRELIM. POSITIVE (NEGATIVE)
[2018-01-28 12:50] LABS: RBC,URINE >100 /HPF (0-2)
[2018-01-28 12:52] LABS: BACTERIA,URINE Few /HPF (None Seen)
[2018-01-28 12:55] LABS: SQUAMOUS EPITHELIAL CELL,UR Rare /LPF (None Seen)
[2018-01-28] MEDS ORDERED: SODIUM CHLORIDE 0.9% 250 ML IV ONE (13:20)
[2018-01-28 16:00] VITALS: BP 119/51
[2018-01-28 17:11] LABS: SPECIMENTYPE,BODY FLUID THORACENTESIS
[2018-01-28 17:53] LABS: GLUCOSE,POINT OF CARE 230 MG/DL (70-110)
[2018-01-28 17:58] LABS: GLUCOSE,POINT OF CARE 271 MG/DL (70-110)
[2018-01-28 18:28] LABS: APPEARANCE,SPUN,BODY FLUID CLEAR (CLEAR); APPEARANCE,UNSPUN,BODY FLUID CLOUDY (CLEAR); COLOR,BODY FLUID RED (LT YELLOW); TOTAL VOLUME,BODY FLUID 4 mL
[2018-01-28 18:29] LABS: LYMPHOCYTES,BODY FLUID 82 %; NEUTROPHILS,BODY FLUID 8 %; WBC, BODY FLUID 21 /cu. mm.
[2018-01-28 18:30] LABS: BASOPHILS,BODY FLUID 0 %; EOSINOPHILS,BF (ANAL) 0 %; MONOCYTES,BODY FLUID 9 %; OTHER CELLS,BODY FLUID 5; PH, BODY FLUID 8
[2018-01-28 20:00] VITALS: BP 119/71
[2018-01-28] MEDS: MONTELUKAST SODIUM 10 MG TABLET PO SCH (21:58)
[2018-01-28] MEDS: ATORVASTATIN CALCIUM 40 MG TABLET PO SCH (21:59)
[2018-01-29] VITALS: BP 88/52
[2018-01-29] MEDS: MethylPREDNISolone SOD SUCC 125 MG/2 ML VIAL IVP SCH ×4 (00:59→17:49)
[2018-01-29 02:38] LABS: GLUCOSE,POINT OF CARE 254 MG/DL (70-110)
[2018-01-29] MEDS: ALBUTEROL SULFATE 2.5 MG/0.5 ML NEB SOLUTION NEB SCH ×6 (03:01→22:46)
[2018-01-29] MEDS: IPRATROPIUM BROMIDE 0.5 MG/2.5 ML NEB SOLUTION NEB SCH ×6 (03:01→22:46)
[2018-01-29 04:00] VITALS: BP 123/66
[2018-01-29 05:24] LABS: BASOPHILS % (AUTO) 0.2 % (0.0-2.0); EOSINOPHILS % (AUTO) 0 % (1.0-6.0); HEMOGLOBIN 9.6 g/dL (12.0-16.0); LYMPHOCYTES # (AUTO) 0.7 K/uL (1.0-4.8); LYMPHOCYTES % (AUTO) 3.8 % (22.0-44.0); MEAN CORPUSCULAR HEMOGLOBIN 33.4 pg (26.0-34.0); MEAN CORPUSCULAR HGB CONC 34.4 G/dL (31.0-37.0); MEAN CORPUSCULAR VOLUME 97 fL (80-100); MONOCYTES # (AUTO) 0.5 K/uL (0.1-1.0); MONOCYTES % (AUTO) 2.8 % (2.0-9.0); PLATELET COUNT (AUTO) 329 K/uL (150-450); RED BLOOD CELL COUNT(AUTO) 2.88 MIL/uL (4.00-5.20)
[2018-01-29 05:29] LABS: ALBUMIN 2.9 g/dL (3.4-5.0); BILIRUBIN,TOTAL 0.4 mg/dL (0.1-1.0); CALCIUM, TOTAL 8.7 mg/dL (8.8-10.5); CREATININE 1.11 mg/dL (0.60-1.30); POTASSIUM 4.2 mmol/L (3.5-5.1); TOTAL PROTEIN, SERUM 6.5 g/dL (6.4-8.2)
[2018-01-29 05:36] LABS: NEUTROPHILS % (AUTO) 93.2 % (40.0-70.0)
[2018-01-29] MEDS: INSULIN LISPRO 100 UNITS/ML SQ PRN ×4 (05:53→20:02)
[2018-01-29 06:58] LABS: GLUCOSE,POINT OF CARE 205 MG/DL (70-110)
[2018-01-29 08:00] VITALS: BP 110/59
[2018-01-29] MEDS: FOLIC ACID 1 MG TABLET PO SCH (08:30)
[2018-01-29] MEDS: ACETAMINOPHEN 325 MG TABLET PO PRN (08:31)
[2018-01-29] MEDS: FUROSEMIDE 40 MG/4 ML VIAL IVP SCH ×2 (08:31→20:00)
[2018-01-29] MEDS: HydrALAZINE HCL 25 MG TABLET PO SCH ×4 (08:31→21:02)
[2018-01-29] MEDS: ASPIRIN 81 MG EC TABLET PO SCH (08:31)
[2018-01-29] MEDS: CLOPIDOGREL BISULFATE 75 MG TABLET PO SCH (08:31)
[2018-01-29] MEDS: MetFORMIN HCL 500 MG TABLET PO SCH ×2 (08:32→18:04)
[2018-01-29] MEDS: TELMISARTAN 40 MG TABLET PO SCH (08:32)
[2018-01-29] MEDS: NIFEdipine 60 MG ER TABLET PO SCH ×2 (08:32→21:02)
[2018-01-29] MEDS: ISOSORBIDE MONONITRATE 60 MG ER TABLET PO SCH ×2 (08:33→22:07)
[2018-01-29] MEDS: TIOTROPIUM BROMIDE 18 MCG/INH HANDIHALER [5] IH SCH (08:33)
[2018-01-29] MEDS: DOXYCYCLINE HYCLATE 100 MG CAPSULE PO SCH ×2 (08:34→20:01)
[2018-01-29 08:40] LABS: MAGNESIUM 1.8 mg/dL (1.80-2.40)
[2018-01-29 10:37] LABS: ABG A-A DIFF O2 399.5 mmHg (10-20.0); ABG BASE EXCESS 10.2 mmol/L (-2.0-3.0); ABG CARBOXYHEMOGLOBIN 0.8 % (0.0-1.5); ABG HCO3 32.3 mmol/L (22.0-26.0); ABG METHEMOGLOBIN 0.1 % (0.0-1.5); ABG OXYGEN CONTENT 13.8 mL/dL (15.0-23.0); ABG OXYGEN SATURATION 93.2 % (95.0-98.0); ABG OXYHEMOGLOBIN 92.4 % (94.0-100.0); ABG PCO2 61 mmHg (35-45); ABG TOTAL HEMOGLOBIN 10.6 G/dL (12.0-18.0); PO2, ARTERIAL BG 70.3 mmHg (71.0-79.0); SOURCE, BLOOD GAS ARTERIAL; TEMPERATURE, FAHRENHEIT, BG 98.6 FAHREN (96.0-98.6)
[2018-01-29 10:39] LABS: O2 DEVICE,BLOOD GAS HI FLOW CANNULA (ROOM AIR); SITE, BLOOD GAS RT RADIAL
[2018-01-29 12:00] VITALS: BP 103/49
[2018-01-29] MEDS: CefTRIAXone SODIUM 1 GM in DEXTROSE 5%-WATER 10 ML IV SCH (12:12)
[2018-01-29 14:38] LABS: GLUCOSE,POINT OF CARE 285 MG/DL (70-110)
[2018-01-29 16:00] VITALS: BP 115/57
[2018-01-29 19:13] LABS: GLUCOSE,POINT OF CARE 209 MG/DL (70-110)
[2018-01-29 20:00] VITALS: BP 128/71
[2018-01-29] MEDS: MONTELUKAST SODIUM 10 MG TABLET PO SCH (20:00)
[2018-01-29] MEDS: ATORVASTATIN CALCIUM 40 MG TABLET PO SCH (20:00)
[2018-01-29] MEDS: ALPRAZolam 0.25 MG TABLET PO PRN (20:01)
[2018-01-29 20:09] LABS: SPECIMENTYPE,BODY FLUID PLEURAL
[2018-01-29] MEDS: LORazepam 2 MG/ML VIAL IVP PRN (22:08)
[2018-01-29 22:14] LABS: APPEARANCE,SPUN,BODY FLUID CLEAR (CLEAR); APPEARANCE,UNSPUN,BODY FLUID CLOUDY (CLEAR)
[2018-01-29 22:16] LABS: COLOR,BODY FLUID AMBER (LT YELLOW); TOTAL VOLUME,BODY FLUID 400 mL; WBC, BODY FLUID 8 /cu. mm.
[2018-01-29 22:17] LABS: LYMPHOCYTES,BODY FLUID 87 %; MONOCYTES,BODY FLUID 6 %; NEUTROPHILS,BODY FLUID 7 %; OTHER CELLS,BODY FLUID MESOTHELIALS
[2018-01-29 22:18] LABS: BASOPHILS,BODY FLUID 0 %; EOSINOPHILS,BF (ANAL) 0 %; PH, BODY FLUID 7
[2018-01-30] VITALS: BP 116/86
[2018-01-30] MEDS: MethylPREDNISolone SOD SUCC 125 MG/2 ML VIAL IVP SCH ×3 (00:08→11:50)
[2018-01-30 01:43] LABS: GLUCOSE,POINT OF CARE 267 MG/DL (70-110)
[2018-01-30] MEDS: ALBUTEROL SULFATE 2.5 MG/0.5 ML NEB SOLUTION NEB SCH ×4 (03:06→15:59)
[2018-01-30] MEDS: IPRATROPIUM BROMIDE 0.5 MG/2.5 ML NEB SOLUTION NEB SCH ×4 (03:06→15:59)
[2018-01-30 04:00] VITALS: BP 96/50
[2018-01-30] MEDS: INSULIN LISPRO 100 UNITS/ML SQ PRN ×2 (05:41→11:55)
[2018-01-30 05:45] LABS: EOSINOPHILS % (AUTO) 0.1 % (1.0-6.0); HEMATOCRIT 27.1 % (36-46); HEMOGLOBIN 9.4 g/dL (12.0-16.0); LYMPHOCYTES # (AUTO) 0.6 K/uL (1.0-4.8); LYMPHOCYTES % (AUTO) 4.3 % (22.0-44.0); MEAN CORPUSCULAR HEMOGLOBIN 33.8 pg (26.0-34.0); MEAN CORPUSCULAR HGB CONC 34.7 G/dL (31.0-37.0); MEAN CORPUSCULAR VOLUME 97 fL (80-100); MONOCYTES # (AUTO) 0.3 K/uL (0.1-1.0); MONOCYTES % (AUTO) 2.2 % (2.0-9.0); NEUTROPHILS # (AUTO) 13.8 K/uL (1.8-7.7); PLATELET COUNT (AUTO) 323 K/uL (150-450); RED BLOOD CELL COUNT(AUTO) 2.79 MIL/uL (4.00-5.20); RED CELL DISTRIBUTION WIDTH 14.8 % (11.5-14.5)
[2018-01-30 06:15] LABS: NEUTROPHILS % (AUTO) 93.4 % (40.0-70.0)
[2018-01-30 06:19] LABS: ALBUMIN 2.7 g/dL (3.4-5.0); BILIRUBIN,TOTAL 0.4 mg/dL (0.1-1.0); CALCIUM, TOTAL 8.4 mg/dL (8.8-10.5); CREATININE 1.11 mg/dL (0.60-1.30); POTASSIUM 4.2 mmol/L (3.5-5.1); TOTAL PROTEIN, SERUM 6.1 g/dL (6.4-8.2)
[2018-01-30 06:53] LABS: GLUCOSE,POINT OF CARE 198 MG/DL (70-110)
[2018-01-30 08:00] VITALS: BP 122/55
[2018-01-30] MEDS: TIOTROPIUM BROMIDE 18 MCG/INH HANDIHALER [5] IH SCH (08:11)
[2018-01-30] MEDS: CLOPIDOGREL BISULFATE 75 MG TABLET PO SCH (08:11)
[2018-01-30] MEDS: NIFEdipine 60 MG ER TABLET PO SCH (08:11)
[2018-01-30] MEDS: HydrALAZINE HCL 25 MG TABLET PO SCH ×3 (08:11→16:37)
[2018-01-30] MEDS: MetFORMIN HCL 500 MG TABLET PO SCH (08:11)
[2018-01-30] MEDS: DOXYCYCLINE HYCLATE 100 MG CAPSULE PO SCH (08:11)
[2018-01-30] MEDS: TELMISARTAN 40 MG TABLET PO SCH (08:12)
[2018-01-30] MEDS: FOLIC ACID 1 MG TABLET PO SCH (08:15)
[2018-01-30] MEDS: ISOSORBIDE MONONITRATE 60 MG ER TABLET PO SCH (08:16)
[2018-01-30] MEDS: ASPIRIN 81 MG EC TABLET PO SCH (08:16)
[2018-01-30 08:20] LABS: GLUCOSE,POINT OF CARE 199 MG/DL (70-110)
[2018-01-30] MEDS: FUROSEMIDE 40 MG/4 ML VIAL IVP SCH (09:16)
[2018-01-30] MEDS: CefTRIAXone SODIUM 1 GM in DEXTROSE 5%-WATER 10 ML IV SCH (11:52)
[2018-01-30 12:00] VITALS: BP 127/43
[2018-01-30] MEDS ORDERED: SODIUM CHLORIDE 0.9% 100 ML ONE (12:46)
[2018-01-30 13:38] LABS: GLUCOSE,POINT OF CARE 250 MG/DL (70-110)
[2018-01-30 16:00] VITALS: BP 136/72
[2018-01-30] MEDS ORDERED: IPRNEB IH (18:06)
[2018-01-30] MEDS ORDERED: INSU100V SQ (18:09)
[2018-01-30] MEDS ORDERED: ALPR-341 PO (18:14)
[2018-01-30] MEDS ORDERED: ALPR-340 PO (18:15)
[2018-01-30] MEDS ORDERED: DOXY50CA2 PO (18:18)
[2018-01-30] MEDS ORDERED: CEFT1VIA15 IVP (18:18)
[2018-01-31] MEDS ORDERED: FUROSEMIDE 40 MG TABLET PO SCH (09:00)
[2018-02-01] MEDS ORDERED: FLUT220HFA IH (03:17)
[2018-02-01] MEDS ORDERED: TIOT4MIS3 IH (03:17)
[2018-02-01] MEDS ORDERED: IPRA4AER IH (03:17)
[2018-02-01] MEDS ORDERED: CHOL200016 PO (03:26)
[2018-02-01] MEDS ORDERED: ACET500C4 PO (03:30)
[2018-02-01] MEDS ORDERED: LORA1TAB3 PO (03:30)
[2018-02-06] MEDS ORDERED: CLOP75 PO (03:14)
[2018-02-06] MEDS ORDERED: PARO20TA24 PO (03:14)
[2018-02-06] MEDS ORDERED: PRED20 PO (03:14)
[2018-02-06] MEDS ORDERED: FAMO20 PO (03:14)
[2018-02-06] MEDS ORDERED: MELA1TAB28 PO (03:29)
[2018-02-06] MEDS ORDERED: TIOT185 IH (03:37)
[2018-02-06] MEDS ORDERED: INSU100V SQ (03:37)
[2018-02-08] MEDS ORDERED: OS500 PO (03:18)
== END 2018-01-30 17:20 | DRG 291 ==
LOC: EMS 21:01 → 5S 23:57 → ICU 01-26 18:53
PROVIDERS: ADMIT Internal Medicine; ATTEND Internal Medicine
PROC: 5A09457 Assistance with Respiratory Ventilation, 24-96 Consecutive Hours, Continuous Positive Airway Pressure (ICD-10-PCS; principal; 2018-01-26)
PROC: 0W9B3ZZ Drainage of Left Pleural Cavity, Percutaneous Approach (ICD-10-PCS; 2018-01-28)
PROC: 0W993ZZ Drainage of Right Pleural Cavity, Percutaneous Approach (ICD-10-PCS; 2018-01-29)
DX: I11.0 Hypertensive heart disease with heart failure (principal); J96.01 Acute respiratory failure with hypoxia; J18.9 Pneumonia, unspecified organism; J44.1 Chronic obstructive pulmonary disease with (acute) exacerbation; J44.0 Chronic obstructive pulmonary disease with (acute) lower respiratory infection; E87.2 Acidosis; I50.33 Acute on chronic diastolic (congestive) heart failure; J20.9 Acute bronchitis, unspecified; E78.00 Pure hypercholesterolemia, unspecified; K57.90 Diverticulosis of intestine, part unspecified, without perforation or abscess without bleeding; I25.10 Atherosclerotic heart disease of native coronary artery without angina pectoris; E78.5 Hyperlipidemia, unspecified; I35.0 Nonrheumatic aortic (valve) stenosis; F41.9 Anxiety disorder, unspecified; F32.9 Major depressive disorder, single episode, unspecified; E11.9 Type 2 diabetes mellitus without complications; Z95.5 Presence of coronary angioplasty implant and graft; Z99.81 Dependence on supplemental oxygen; Z88.8 Allergy status to other drugs, medicaments and biological substances; Z79.01 Long term (current) use of anticoagulants; Z79.82 Long term (current) use of aspirin; Z79.899 Other long term (current) drug therapy
CPT/HCPCS: 32555; 71250; 72192; 74150; 76942; 82465; 82805; 82945; 83605; 83615; 83735; 83986; 84145; 84157; 87015; 87040; 87070; 87081; 87086; 87101; 87205; 87206; 88108; 89051; 93005; 93306; 94640; 94660; 96365; 96375; 97162; 97166; 97530; 97535; 99285; J0696; J1940; J2060; J2930; J3475; J7050; J7060

== ENCOUNTER → 2018-02-19 | Outpatient (CLI) | payer MEDICARE, OTHER ==
[~2018-02-19] VITALS: Ht 144.8 cm; Wt 68.5 kg
[~2018-02-19] MED LIST changes: -ADV500 IH; -ALBU8.5H8 IH; +ALBU8HFA IH; -AUD NEB; +DOCU250C91 PO; +FAMO20 PO; -FOLI1 PO; +IPRA3AMP24 NEB; -KDUR10 PO; +MELA1TAB28 PO; -METO100XL PO; -NAPR220T57 PO; -NITR.4 SL; +OS500 PO; -PANT40TA25 PO; +PARO20TA24 PO; +POLY17PO PO; +PRED20 PO
[2018-02-19 11:14] VITALS: BP 145/67
== END | disposition home or self-care (01) ==
LOC: SRCNTR 10:31
PROVIDERS: ATTEND Internal Medicine Cardiovascular Disease
DX: J44.1 Chronic obstructive pulmonary disease with (acute) exacerbation (principal); I11.0 Hypertensive heart disease with heart failure; I50.9 Heart failure, unspecified; E11.9 Type 2 diabetes mellitus without complications; E78.5 Hyperlipidemia, unspecified
CPT/HCPCS: 93005; G0463

== ENCOUNTER → 2018-04-01 | Outpatient (CLI) | payer MEDICARE, OTHER ==
[~2018-04-01] MED LIST changes: +BUDE0.5A NEB; -DOCU250C91 PO; +DSS100 PO; -HYDR25TA84 PO; +METO-558 PO; +NTP TD; +PANT40TA25 PO
[2018-04-01 14:22] VITALS: BP 125/66
== END | disposition home or self-care (01) ==
LOC: SRCNTR 14:21
PROVIDERS: ATTEND Internal Medicine Cardiovascular Disease
DX: I11.0 Hypertensive heart disease with heart failure (principal); I50.9 Heart failure, unspecified; J44.9 Chronic obstructive pulmonary disease, unspecified; E11.9 Type 2 diabetes mellitus without complications; I25.10 Atherosclerotic heart disease of native coronary artery without angina pectoris; E78.5 Hyperlipidemia, unspecified; M79.89 Other specified soft tissue disorders
CPT/HCPCS: G0463

== ENCOUNTER → 2018-06-05 | Outpatient (CLI) | payer MEDICARE, OTHER ==
[~2018-06-05] MED LIST changes: +METF-960 PO; -METF500T6 PO
[2018-06-05 15:32] VITALS: BP 192/86
== END | disposition home or self-care (01) ==
LOC: SRCNTR 15:01
PROVIDERS: ATTEND Internal Medicine Cardiovascular Disease
DX: I25.10 Atherosclerotic heart disease of native coronary artery without angina pectoris (principal); I11.0 Hypertensive heart disease with heart failure; I50.9 Heart failure, unspecified; Z23 Encounter for immunization; E78.5 Hyperlipidemia, unspecified; J44.9 Chronic obstructive pulmonary disease, unspecified
CPT/HCPCS: 90471; 90686; G0463; 96372

== ENCOUNTER 2019-04-16 14:06 | Inpatient (IN) | payer MEDICARE, OTHER ==
[~2019-04-16] VITALS: Ht 147.3 cm; Wt 68.1 kg
[~2019-04-16 14:06] MED LIST changes: +AMOX1TAB16 PO; -CLOP75 PO; +CLOP75TA3 PO; +PRED5 PO
[2019-04-16] MEDS ORDERED: SODIUM CHLORIDE 0.9% 2,000 ML IV ONE (14:43)
[2019-04-16] MEDS ORDERED: 0.9% SODIUM CHLORIDE 10 ML SYRINGE IVP PRN ×3 (14:45→22:00)
[2019-04-16] MEDS ORDERED: IPRATROPIUM BROMIDE 0.5 MG/2.5 ML NEB SOLUTION NEB ONE (15:15)
[2019-04-16] MEDS ORDERED: ALBUTEROL SULFATE 2.5 MG/0.5 ML NEB SOLUTION NEB ONE (15:15)
[2019-04-16 15:19] LABS: BASOPHILS % (AUTO) 0.5 % (0.0-2.0); EOSINOPHILS % (AUTO) 0.3 % (1.0-6.0); HEMATOCRIT 28.6 % (36-46); HEMOGLOBIN 9.4 g/dL (12.0-16.0); LYMPHOCYTES # (AUTO) 0.8 K/uL (1.0-4.8); LYMPHOCYTES % (AUTO) 7.7 % (22.0-44.0); MEAN CORPUSCULAR HEMOGLOBIN 33.4 pg (26.0-34.0); MEAN CORPUSCULAR HGB CONC 32.9 G/dL (31.0-37.0); MEAN CORPUSCULAR VOLUME 101 fL (80-100); MONOCYTES # (AUTO) 0.6 K/uL (0.1-1.0); MONOCYTES % (AUTO) 6.4 % (2.0-9.0); NEUTROPHILS # (AUTO) 8.3 K/uL (1.8-7.7); NEUTROPHILS % (AUTO) 85.1 % (40.0-70.0); PLATELET COUNT (AUTO) 137 K/uL (150-450); RED BLOOD CELL COUNT(AUTO) 2.82 MIL/uL (4.00-5.20); RED CELL DISTRIBUTION WIDTH 16.6 % (11.5-14.5)
[2019-04-16 15:34] LABS: PROTHROMBIN TIME 10.1 SEC (9.4-11.6)
[2019-04-16 15:35] LABS: CALCIUM, TOTAL 8.4 mg/dL (8.8-10.5); CREATININE 0.97 mg/dL (0.60-1.30); POTASSIUM 3.6 mmol/L (3.5-5.1)
[2019-04-16 15:41] LABS: ALBUMIN 2.8 g/dL (3.4-5.0); BILIRUBIN,TOTAL 1.1 mg/dL (0.1-1.0); TOTAL PROTEIN, SERUM 5.7 g/dL (6.4-8.2)
[2019-04-16 15:44] LABS: LACTIC ACID 0.8 mmol/L (0.4-2.0)
[2019-04-16] MEDS ORDERED: MethylPREDNISolone SOD SUCC 125 MG/2 ML VIAL IVP ONE (15:45)
[2019-04-16] MEDS ORDERED: FUROSEMIDE 40 MG/4 ML VIAL IVP ONE (15:45)
[2019-04-16] MEDS ORDERED: ACETAMINOPHEN 325 MG TABLET PO ONE (15:45)
[2019-04-16] MEDS ORDERED: LEVOFLOXACIN 500 MG/D5% WATER 100 ML IV ONE (15:45)
[2019-04-16 16:04] LABS: ABG BASE EXCESS 6.5 mmol/L (-2.0-3.0); ABG CARBOXYHEMOGLOBIN 0.4 % (0.0-1.5); ABG HCO3 29.1 mmol/L (22.0-26.0); ABG METHEMOGLOBIN 0.2 % (0.0-1.5); ABG OXYGEN CONTENT 13.8 mL/dL (15.0-23.0); ABG OXYGEN SATURATION 98.8 % (95.0-98.0); ABG OXYHEMOGLOBIN 98.2 % (94.0-100.0); ABG PH 7.279 (7.35-7.450); ABG TOTAL HEMOGLOBIN 9.5 G/dL (12.0-18.0); PO2, ARTERIAL BG 262.2 mmHg (71.0-79.0); SOURCE, BLOOD GAS ARTERIAL; TEMPERATURE, FAHRENHEIT, BG 99.7 FAHREN (96.0-98.6)
[2019-04-16 16:06] LABS: ABG PCO2 73 mmHg (35-45); O2 DEVICE,BLOOD GAS AEROSOL MASK (ROOM AIR); SITE, BLOOD GAS LFT RADIAL
[2019-04-16] MEDS ORDERED: LORazepam 2 MG/ML VIAL IVP ONE (16:15)
[2019-04-16 16:47] LABS: APPEARANCE,URINE CLEAR (CLEAR); BILIRUBIN,URINE NEGATIVE (NEGATIVE); GLUCOSE, URINE (UA) 250 mg/dL (NEGATIVE); KETONES,URINE NEGATIVE (NEGATIVE); LEUKOCYTE ESTERASE ,URINE NEGATIVE (NEGATIVE); NITRATE,URINE NEGATIVE (NEGATIVE); OCCULT BLOOD,URINE SMALL (NEGATIVE); PROTEIN,URINE POS 1+ (NEGATIVE)
[2019-04-16 17:37] LABS: WBC,URINE 0-2 /HPF (0-5)
[2019-04-16 17:41] LABS: BACTERIA,URINE Rare /HPF (None Seen); SQUAMOUS EPITHELIAL CELL,UR Few /LPF (None Seen)
[2019-04-16 17:41] LABS: ABG METHEMOGLOBIN 0.3 % (0.0-1.5); SOURCE, BLOOD GAS ARTERIAL
[2019-04-16 17:57] LABS: ABG A-A DIFF O2 104.9 mmHg (10-20.0); ABG BASE EXCESS 6.9 mmol/L (-2.0-3.0); ABG HCO3 29.6 mmol/L (22.0-26.0); ABG OXYGEN CONTENT 12.9 mL/dL (15.0-23.0); ABG OXYHEMOGLOBIN 88.8 % (94.0-100.0); ABG PCO2 54 mmHg (35-45); ABG PH 7.386 (7.35-7.450); ABG TOTAL HEMOGLOBIN 10.3 G/dL (12.0-18.0); PO2, ARTERIAL BG 59.2 mmHg (71.0-79.0); TEMPERATURE, FAHRENHEIT, BG 99.3 FAHREN (96.0-98.6)
[2019-04-16] MEDS ORDERED: ONDANSETRON HCL 4 MG/2 ML VIAL IVP PRN ×2 (18:15→22:00)
[2019-04-16] MEDS ORDERED: ACETAMINOPHEN 325 MG TABLET PO PRN (18:15)
[2019-04-16 18:17] LABS: INSPIRATORY TIME, BG 0.9 SEC; O2 DEVICE,BLOOD GAS BIPAP (ROOM AIR); SITE, BLOOD GAS LFT RADIAL; SPONTANEOUS VT, BG 637 ml
[2019-04-16] MEDS ORDERED: ALBUTEROL SULFATE 2.5 MG/0.5 ML NEB SOLUTION NEB SCH (20:00)
[2019-04-16] MEDS ORDERED: IPRATROPIUM BROMIDE 0.5 MG/2.5 ML NEB SOLUTION NEB SCH (20:00)
[2019-04-16 20:10] VITALS: BP 103/78
[2019-04-16 21:02] LABS: GLUCOSE,POINT OF CARE 413 MG/DL (70-110)
[2019-04-16] MEDS: NIFEdipine 60 MG ER TABLET PO SCH (22:00)
[2019-04-16] MEDS ORDERED: ZOLPIDEM TARTRATE 5 MG TABLET PO PRN (22:00)
[2019-04-16] MEDS ORDERED: ALBUTEROL SULFATE 2.5 MG/0.5 ML NEB SOLUTION NEB PRN (22:00)
[2019-04-16] MEDS: CALCIUM OYSTER SHELL 500 MG TABLET PO SCH (22:00)
[2019-04-16] MEDS: ISOSORBIDE MONONITRATE 60 MG ER TABLET PO SCH (22:00)
[2019-04-16] MEDS: MONTELUKAST SODIUM 10 MG TABLET PO SCH (22:00)
[2019-04-16] MEDS ORDERED: *CLINICAL-LEVOFLOXACIN IVPB DOSING CLINICAL ONE (22:00)
[2019-04-16] MEDS: BUDESONIDE 0.5 MG/2 ML NEB SOLUTION NEB SCH (22:39)
[2019-04-16] MEDS: MethylPREDNISolone SOD SUCC 40 MG/ML VIAL IVP SCH (23:09)
[2019-04-16] MEDS: AZITHROMYCIN 500 MG/NS 250 ML IV SCH (23:10)
[2019-04-16] MEDS ORDERED: SODIUM CHLORIDE 0.9% 250 ML IV ONE (23:17)
[2019-04-16 23:46] LABS: GLUCOSE,POINT OF CARE 383 MG/DL (70-110)
[2019-04-17] VITALS (7 sets, daily range): BP systolic 103–144; BP diastolic 58–74
[2019-04-17] MEDS ORDERED: DEXTROSE 50%-WATER 25 GM/50 ML SYRINGE IVP PRN ×2 (00:30→18:45)
[2019-04-17] MEDS ORDERED: 0.9% SODIUM CHLORIDE 5 ML NEB SOLUTION NEB ONE (01:01)
[2019-04-17] MEDS: ALBUTEROL SULFATE 2.5 MG/0.5 ML NEB SOLUTION NEB SCH ×4 (01:02→21:02)
[2019-04-17] MEDS: INSULIN LISPRO 100 UNITS/ML SQ PRN ×3 (05:44→21:24)
[2019-04-17 06:23] LABS: BASOPHILS % (AUTO) 0.2 % (0.0-2.0); EOSINOPHILS % (AUTO) 0.1 % (1.0-6.0); HEMATOCRIT 28.1 % (36-46); HEMOGLOBIN 9.4 g/dL (12.0-16.0); LYMPHOCYTES # (AUTO) 0.5 K/uL (1.0-4.8); LYMPHOCYTES % (AUTO) 5.4 % (22.0-44.0); MEAN CORPUSCULAR HEMOGLOBIN 33.7 pg (26.0-34.0); MEAN CORPUSCULAR HGB CONC 33.5 G/dL (31.0-37.0); MEAN CORPUSCULAR VOLUME 101 fL (80-100); MONOCYTES # (AUTO) 0.2 K/uL (0.1-1.0); MONOCYTES % (AUTO) 2.5 % (2.0-9.0); NEUTROPHILS # (AUTO) 8.3 K/uL (1.8-7.7); PLATELET COUNT (AUTO) 109 K/uL (150-450); RED CELL DISTRIBUTION WIDTH 16.8 % (11.5-14.5)
[2019-04-17 06:41] LABS: ALBUMIN 2.6 g/dL (3.4-5.0); BILIRUBIN,TOTAL 0.8 mg/dL (0.1-1.0); CALCIUM, TOTAL 8.5 mg/dL (8.8-10.5); CREATININE 1.1 mg/dL (0.60-1.30); MAGNESIUM 1.4 mg/dL (1.80-2.40); POTASSIUM 3.5 mmol/L (3.5-5.1); TOTAL PROTEIN, SERUM 5.8 g/dL (6.4-8.2)
[2019-04-17 06:50] LABS: NEUTROPHILS % (AUTO) 91.8 % (40.0-70.0)
[2019-04-17 07:05] LABS: GLUCOSE,POINT OF CARE 281 MG/DL (70-110)
[2019-04-17] MEDS: BUDESONIDE 0.5 MG/2 ML NEB SOLUTION NEB SCH ×2 (08:05→21:02)
[2019-04-17] MEDS: MetFORMIN HCL 500 MG TABLET PO SCH ×2 (08:44→16:35)
[2019-04-17] MEDS: TIOTROPIUM BROMIDE 18 MCG/INH HANDIHALER [5] IH SCH (08:44)
[2019-04-17] MEDS: METOPROLOL SUCCINATE 50 MG ER TABLET PO SCH (08:45)
[2019-04-17] MEDS: NIFEdipine 60 MG ER TABLET PO SCH ×2 (08:45→21:06)
[2019-04-17] MEDS: CALCIUM OYSTER SHELL 500 MG TABLET PO SCH ×2 (08:45→21:03)
[2019-04-17] MEDS: CLOPIDOGREL BISULFATE 75 MG TABLET PO SCH (08:46)
[2019-04-17] MEDS: ISOSORBIDE MONONITRATE 60 MG ER TABLET PO SCH ×2 (08:46→21:06)
[2019-04-17] MEDS: TELMISARTAN 40 MG TABLET PO SCH (08:46)
[2019-04-17] MEDS: PANTOPRAZOLE SODIUM 40 MG DR TABLET PO SCH (08:46)
[2019-04-17] MEDS: ASPIRIN 81 MG EC TABLET PO SCH (08:47)
[2019-04-17] MEDS: PARoxetine HCL 20 MG TABLET PO SCH (08:47)
[2019-04-17] MEDS: MethylPREDNISolone SOD SUCC 40 MG/ML VIAL IVP SCH ×2 (08:47→21:07)
[2019-04-17] MEDS: FUROSEMIDE 40 MG TABLET PO SCH (08:51)
[2019-04-17] MEDS: LEVOFLOXACIN 250 MG/D5% WATER 50 ML IV SCH (16:35)
[2019-04-17 17:10] LABS: GLUCOSE,POINT OF CARE 235 MG/DL (70-110)
[2019-04-17] MEDS ORDERED: MAGNESIUM SULFATE 4 GM/WATER 100 ML IV PRN (18:45)
[2019-04-17] MEDS ORDERED: MAGNESIUM SULFATE 2 GM/WATER 50 ML IV PRN (18:45)
[2019-04-17] MEDS ORDERED: MAGNESIUM OXIDE 400 MG TABLET PO PRN (18:45)
[2019-04-17] MEDS: MONTELUKAST SODIUM 10 MG TABLET PO SCH (21:06)
[2019-04-17] MEDS: ATORVASTATIN CALCIUM 40 MG TABLET PO SCH (21:06)
[2019-04-17] MEDS: INSULIN GLARGINE,HUM.REC.ANLOG 100 UNITS/ML SQ SCH (21:24)
[2019-04-17 23:20] LABS: GLUCOSE,POINT OF CARE 416 MG/DL (70-110)
[2019-04-18] MEDS ORDERED: SODIUM CHLORIDE 0.9% 250 ML IV ONE (00:33)
[2019-04-18] MEDS: AZITHROMYCIN 500 MG/NS 250 ML IV SCH ×2 (00:49→22:35)
[2019-04-18] MEDS: ALBUTEROL SULFATE 2.5 MG/0.5 ML NEB SOLUTION NEB SCH ×4 (02:38→20:20)
[2019-04-18 04:19] VITALS: BP 119/56
[2019-04-18] MEDS: INSULIN LISPRO 100 UNITS/ML SQ PRN ×2 (06:33→21:00)
[2019-04-18] MEDS ORDERED: 0.9% SODIUM CHLORIDE 5 ML NEB SOLUTION NEB ONE (06:59)
[2019-04-18] MEDS: MetFORMIN HCL 500 MG TABLET PO SCH ×2 (08:00→19:04)
[2019-04-18 08:42] VITALS: BP 117/50
[2019-04-18] MEDS: CLOPIDOGREL BISULFATE 75 MG TABLET PO SCH (09:00)
[2019-04-18] MEDS: MethylPREDNISolone SOD SUCC 40 MG/ML VIAL IVP SCH (09:00)
[2019-04-18] MEDS: INSULIN GLARGINE,HUM.REC.ANLOG 100 UNITS/ML SQ SCH ×2 (09:00→21:01)
[2019-04-18] MEDS: TIOTROPIUM BROMIDE 18 MCG/INH HANDIHALER [5] IH SCH (09:00)
[2019-04-18] MEDS: FUROSEMIDE 40 MG TABLET PO SCH (09:00)
[2019-04-18] MEDS: METOPROLOL SUCCINATE 50 MG ER TABLET PO SCH (09:00)
[2019-04-18] MEDS: ISOSORBIDE MONONITRATE 60 MG ER TABLET PO SCH ×2 (09:00→21:00)
[2019-04-18] MEDS: ASPIRIN 81 MG EC TABLET PO SCH (09:00)
[2019-04-18] MEDS: NIFEdipine 60 MG ER TABLET PO SCH ×2 (09:00→21:00)
[2019-04-18] MEDS: CALCIUM OYSTER SHELL 500 MG TABLET PO SCH ×2 (09:00→21:02)
[2019-04-18] MEDS: PARoxetine HCL 20 MG TABLET PO SCH (09:00)
[2019-04-18] MEDS: PANTOPRAZOLE SODIUM 40 MG DR TABLET PO SCH (09:00)
[2019-04-18] MEDS: TELMISARTAN 40 MG TABLET PO SCH (09:00)
[2019-04-18] MEDS: BUDESONIDE 0.5 MG/2 ML NEB SOLUTION NEB SCH ×2 (09:00→20:20)
[2019-04-18 11:52] LABS: GLUCOMETER DEV NAME(LOC) 5N.1; GLUCOSE,POINT OF CARE 146 MG/DL (70-110)
[2019-04-18 11:52] LABS: GLUCOMETER DEV NAME(LOC) 5N.1; GLUCOSE,POINT OF CARE 422 MG/DL (70-110)
[2019-04-18 12:50] VITALS: BP 112/46
[2019-04-18 15:44] VITALS: BP 106/46
[2019-04-18] MEDS ORDERED: HYDROCODONE/ACETAMINOPHEN 5-325 MG TABLET PO PRN (17:45)
[2019-04-18] MEDS: LEVOFLOXACIN 250 MG/D5% WATER 50 ML IV SCH (19:00)
[2019-04-18 19:12] VITALS: BP 120/60
[2019-04-18] MEDS: IPRATROPIUM BROMIDE 0.5 MG/2.5 ML NEB SOLUTION NEB PRN (20:20)
[2019-04-18] MEDS: ATORVASTATIN CALCIUM 40 MG TABLET PO SCH (21:01)
[2019-04-18] MEDS: MONTELUKAST SODIUM 10 MG TABLET PO SCH (21:02)
[2019-04-18] MEDS ORDERED: MethylPREDNISolone SOD SUCC 40 MG/ML VIAL IVP SCH (22:00)
[2019-04-18 23:15] LABS: GLUCOMETER DEV NAME(LOC) 5N.1; GLUCOSE,POINT OF CARE 304 MG/DL (70-110)
[2019-04-18 23:23] VITALS: BP 123/58
[2019-04-19] MEDS: IPRATROPIUM BROMIDE 0.5 MG/2.5 ML NEB SOLUTION NEB PRN ×2 (02:53→19:26)
[2019-04-19] MEDS: ALBUTEROL SULFATE 2.5 MG/0.5 ML NEB SOLUTION NEB SCH ×4 (02:53→19:26)
[2019-04-19 03:54] VITALS: BP 114/52
[2019-04-19] MEDS: INSULIN LISPRO 100 UNITS/ML SQ PRN ×4 (06:34→20:39)
[2019-04-19] MEDS ORDERED: 0.9% SODIUM CHLORIDE 5 ML NEB SOLUTION NEB ONE (07:23)
[2019-04-19 07:28] VITALS: BP 158/65
[2019-04-19 08:45] LABS: GLUCOMETER DEV NAME(LOC) 5N.2; GLUCOSE,POINT OF CARE 255 MG/DL (70-110)
[2019-04-19] MEDS: ASPIRIN 81 MG EC TABLET PO SCH (09:00)
[2019-04-19] MEDS: CLOPIDOGREL BISULFATE 75 MG TABLET PO SCH (09:00)
[2019-04-19] MEDS: BUDESONIDE 0.5 MG/2 ML NEB SOLUTION NEB SCH ×2 (09:00→19:26)
[2019-04-19] MEDS: NIFEdipine 60 MG ER TABLET PO SCH ×2 (09:07→20:28)
[2019-04-19] MEDS: PARoxetine HCL 20 MG TABLET PO SCH (09:07)
[2019-04-19] MEDS: PANTOPRAZOLE SODIUM 40 MG DR TABLET PO SCH (09:10)
[2019-04-19] MEDS: CALCIUM OYSTER SHELL 500 MG TABLET PO SCH ×2 (09:10→20:33)
[2019-04-19] MEDS: METOPROLOL SUCCINATE 50 MG ER TABLET PO SCH (09:11)
[2019-04-19] MEDS: MetFORMIN HCL 500 MG TABLET PO SCH ×2 (09:11→18:29)
[2019-04-19] MEDS: FUROSEMIDE 40 MG TABLET PO SCH (09:11)
[2019-04-19] MEDS: ISOSORBIDE MONONITRATE 60 MG ER TABLET PO SCH ×2 (09:11→20:33)
[2019-04-19] MEDS: PredniSONE 20 MG TABLET PO SCH (09:11)
[2019-04-19] MEDS: TIOTROPIUM BROMIDE 18 MCG/INH HANDIHALER [5] IH SCH (09:12)
[2019-04-19] MEDS: INSULIN GLARGINE,HUM.REC.ANLOG 100 UNITS/ML SQ SCH ×2 (09:21→20:39)
[2019-04-19 10:47] VITALS: BP 141/68
[2019-04-19] MEDS: TELMISARTAN 40 MG TABLET PO SCH (12:48)
[2019-04-19 15:28] VITALS: BP 138/64
[2019-04-19] MEDS ORDERED: SODIUM CHLORIDE 0.9% 100 ML ONE (16:14)
[2019-04-19] MEDS: LEVOFLOXACIN 250 MG/D5% WATER 50 ML IV SCH (16:16)
[2019-04-19 18:44] LABS: BASOPHILS % (AUTO) 0.1 % (0.0-2.0); EOSINOPHILS % (AUTO) 0 % (1.0-6.0); HEMATOCRIT 27.3 % (36-46); HEMOGLOBIN 9.2 g/dL (12.0-16.0); LYMPHOCYTES # (AUTO) 0.3 K/uL (1.0-4.8); LYMPHOCYTES % (AUTO) 2.6 % (22.0-44.0); MEAN CORPUSCULAR HEMOGLOBIN 33.9 pg (26.0-34.0); MEAN CORPUSCULAR HGB CONC 33.5 G/dL (31.0-37.0); MEAN CORPUSCULAR VOLUME 101 fL (80-100); MONOCYTES # (AUTO) 0.2 K/uL (0.1-1.0); MONOCYTES % (AUTO) 1.8 % (2.0-9.0); NEUTROPHILS # (AUTO) 9.8 K/uL (1.8-7.7); PLATELET COUNT (AUTO) 126 K/uL (150-450); RED CELL DISTRIBUTION WIDTH 16.4 % (11.5-14.5)
[2019-04-19 18:45] LABS: NEUTROPHILS % (AUTO) 95.5 % (40.0-70.0)
[2019-04-19 18:55] LABS: CALCIUM, TOTAL 8.7 mg/dL (8.8-10.5); CREATININE 1.03 mg/dL (0.60-1.30); POTASSIUM 3.6 mmol/L (3.5-5.1)
[2019-04-19 19:01] LABS: ALBUMIN 2.6 g/dL (3.4-5.0); BILIRUBIN,TOTAL 0.6 mg/dL (0.1-1.0); TOTAL PROTEIN, SERUM 5.7 g/dL (6.4-8.2)
[2019-04-19 20:11] VITALS: BP 129/66
[2019-04-19] MEDS: MONTELUKAST SODIUM 10 MG TABLET PO SCH (20:29)
[2019-04-19] MEDS: ATORVASTATIN CALCIUM 40 MG TABLET PO SCH (20:33)
[2019-04-19] MEDS: AZITHROMYCIN 500 MG/NS 250 ML IV SCH (23:25)
[2019-04-20 00:33] VITALS: BP 132/66
[2019-04-20] MEDS: ALBUTEROL SULFATE 2.5 MG/0.5 ML NEB SOLUTION NEB SCH ×2 (02:49→08:10)
[2019-04-20] MEDS: IPRATROPIUM BROMIDE 0.5 MG/2.5 ML NEB SOLUTION NEB PRN (02:49)
[2019-04-20 04:29] VITALS: BP 135/74
[2019-04-20 07:30] VITALS: BP 161/81
[2019-04-20] MEDS ORDERED: 0.9% SODIUM CHLORIDE 5 ML NEB SOLUTION NEB ONE (08:01)
[2019-04-20] MEDS: INSULIN GLARGINE,HUM.REC.ANLOG 100 UNITS/ML SQ SCH (08:29)
[2019-04-20] MEDS: MetFORMIN HCL 500 MG TABLET PO SCH (08:30)
[2019-04-20] MEDS: TIOTROPIUM BROMIDE 18 MCG/INH HANDIHALER [5] IH SCH (08:30)
[2019-04-20] MEDS: FUROSEMIDE 40 MG TABLET PO SCH (08:31)
[2019-04-20] MEDS: ISOSORBIDE MONONITRATE 60 MG ER TABLET PO SCH (08:31)
[2019-04-20] MEDS: PredniSONE 20 MG TABLET PO SCH (08:31)
[2019-04-20] MEDS: CALCIUM OYSTER SHELL 500 MG TABLET PO SCH (08:31)
[2019-04-20] MEDS: PARoxetine HCL 20 MG TABLET PO SCH (08:31)
[2019-04-20] MEDS: ASPIRIN 81 MG EC TABLET PO SCH (08:31)
[2019-04-20] MEDS: NIFEdipine 60 MG ER TABLET PO SCH (08:32)
[2019-04-20] MEDS: CLOPIDOGREL BISULFATE 75 MG TABLET PO SCH (08:32)
[2019-04-20] MEDS: PANTOPRAZOLE SODIUM 40 MG DR TABLET PO SCH (08:32)
[2019-04-20 09:49] VITALS: BP 144/73
[2019-04-20] MEDS: TELMISARTAN 40 MG TABLET PO SCH (09:52)
[2019-04-20] MEDS: METOPROLOL SUCCINATE 50 MG ER TABLET PO SCH (09:52)
[2019-04-20 11:45] VITALS: BP 158/82
[2019-04-20] MEDS ORDERED: LEVO500T2 PO (12:31)
[2019-04-20] MEDS ORDERED: PRED10 PO (12:34)
[2019-04-21 06:56] LABS: GLUCOMETER DEV NAME(LOC) 5N.1; GLUCOSE,POINT OF CARE 178 MG/DL (70-110)
[2019-04-21 06:57] LABS: GLUCOMETER DEV NAME(LOC) 5N.1; GLUCOSE,POINT OF CARE 184 MG/DL (70-110)
[2019-04-21 06:57] LABS: GLUCOMETER DEV NAME(LOC) 5N.2; GLUCOSE,POINT OF CARE 148 MG/DL (70-110)
[2019-04-21 06:57] LABS: GLUCOMETER DEV NAME(LOC) 5N.1; GLUCOSE,POINT OF CARE 96 MG/DL (70-110)
[2019-04-21 06:57] LABS: GLUCOMETER DEV NAME(LOC) 5N.1; GLUCOSE,POINT OF CARE 298 MG/DL (70-110)
[2019-04-21 06:57] LABS: GLUCOMETER DEV NAME(LOC) 5N.1; GLUCOSE,POINT OF CARE 219 MG/DL (70-110)
== END 2019-04-20 13:10 | disposition home or self-care (01) | DRG 291 ==
LOC: EMS 14:08 → ICU 18:24 → 5N 04-17 18:30
PROVIDERS: ADMIT Internal Medicine; ATTEND Internal Medicine
PROC: 5A09357 Assistance with Respiratory Ventilation, Less than 24 Consecutive Hours, Continuous Positive Airway Pressure (ICD-10-PCS; principal; 2019-04-16)
PROC: 5A09357 Assistance with Respiratory Ventilation, Less than 24 Consecutive Hours, Continuous Positive Airway Pressure (ICD-10-PCS; 2019-04-17)
DX: I11.0 Hypertensive heart disease with heart failure (principal); J96.21 Acute and chronic respiratory failure with hypoxia; J18.9 Pneumonia, unspecified organism; J96.22 Acute and chronic respiratory failure with hypercapnia; I50.33 Acute on chronic diastolic (congestive) heart failure; F41.9 Anxiety disorder, unspecified; E11.9 Type 2 diabetes mellitus without complications; E78.00 Pure hypercholesterolemia, unspecified; F32.9 Major depressive disorder, single episode, unspecified; I25.10 Atherosclerotic heart disease of native coronary artery without angina pectoris; M25.511 Pain in right shoulder; J43.9 Emphysema, unspecified; J20.9 Acute bronchitis, unspecified; J84.10 Pulmonary fibrosis, unspecified; Z82.49 Family history of ischemic heart disease and other diseases of the circulatory system; Z88.8 Allergy status to other drugs, medicaments and biological substances; Z83.3 Family history of diabetes mellitus; Z99.81 Dependence on supplemental oxygen
CPT/HCPCS: 36600; 82805; 83605; 83735; 84145; 87040; 87081; 93005; 94640; 94660; 99291; G0378; J0456; J1815; J1940; J1956; J2920; J2930; J3475; J7030; J7050